=== PATIENT | female | born 1950 | race Caucasian/White ===

== ENCOUNTER 2016-08-22 20:52 | Emergency (ER) | payer OTHER ==
--- NOTE | 2016-08-23 00:17 | DIAGNOSTIC IMAGING REPORT ---
PROCEDURE: CT THORAX ABD PELVIS W/CONT INDICATION: BACK PAIN, HX LYMPHOMA TECHNIQUE: 125 ml of Isovue 300 injected intravenously and axial images were obtained of the entire thorax, abdomen, and pelvis with sagittal and coronal reformations. COMPARISON: None. FINDINGS: THORAX: Moderate mediastinal and bilateral axillary adenopathy. Lungs are clear. Heart and mediastinum are normal. Mild degenerative changes of the mid thoracic spine with accentuation of the thoracic kyphosis. ABDOMEN: Moderate periportal, periceliac, and retroperitoneal adenopathy. Spleen is of normal size. Moderate ingested material in the stomach. Bowel pattern is otherwise normal including appendix. Gallbladder, liver, pancreas, kidneys (5.0 cm left renal cyst), and aorta are normal. Bowel pattern is within normal limits. PELVIS: Moderate internal and external iliac adenopathy. Moderate inguinal adenopathy. Status post hysterectomy. Ovaries are not visualized (presumed atrophic). IMPRESSION: 1. Moderate mediastinal and bilateral axillary adenopathy. 2. Otherwise negative CT thorax. 3. Moderate periportal, periceliac, and retroperitoneal adenopathy. 4. Otherwise negative CT abdomen. 5. Moderate bilateral iliac and inguinal adenopathy. 6. Status post hysterectomy. 7. Otherwise negative CT pelvis ( 8. Findings discussed with Dr. Silvestre Carolina. All CT scans at this facility use dose modulation, iterative reconstruction, and/or weight-based dosing when appropriate to reduce radiation dose to as low as reasonably achievable.
--- NOTE | 2016-08-23 01:31 | ED ORDER SUMMARY ---
..... Patient: ANILA RAMÍREZ OrderSheet [facility] VisitID: [id number] [place] [address] 65y, F Registration Date/Time: 08/22/2016 ORDER SHEET Weight: 59.8 kg Allergies: Compazine, Phenothiazenes, Promethazine HCl, Sulfa Drugs GENERAL ORDERS: CT Abd/Pel w Cont (No) (N/A) Urgent (22:14 08/22/2016 Ananth Bobo) (Ack 22:25 NHouse ER Tech1) (22:42 Ananth Bobo) (Cancelled: Duplicate Order22:42 Ananth Bobo) CT Thorax w Cont (No) (N/A) Urgent (22:14 08/22/2016 Ananth Bobo) (Ack 22:25 NHouse ER Tech1) (22:42 Ananth Bobo) (Cancelled: Duplicate Order22:42 Ananth Bobo) CBC w Diff Urgent (22:15 08/22/2016 Ananth Bobo) (Ack 22:25 NHouse ER Tech1) CMP Urgent (22:15 08/22/2016 Ananth Bobo) (Ack 22:25 NHouse ER Tech1) UA-Culture if indicated Urgent (22:15 08/22/2016 Ananth Bobo) (Ack 22:25 NHouse ER Tech1) CRP Urgent (22:15 08/22/2016 Ananth Bobo) (Ack 22:25 NHouse ER Tech1) Pulse oximeter (22:15 08/22/2016 Ananth Bobo) (22:28 EBonham) CT Thorax/Abd/Pelvis w Cont (No) (N/A) Urgent (22:42 08/22/2016 Ananth Bobo) (Ack 22:59 AMcQuoid ER Tech1) (0:26 Emilyger) MEDICATION ORDERS: IV FLUIDS: IV NS : initial bolus 1000 mL (1000 mL/hr), then none - for X1 (NOW) (22:11 08/22/2016 Ananth Bobo) (22:52 EBonham) Morphine IV 2 mg (may repeat once in 15 minutes for pain > 6/10) (22:27 08/22/2016 Ananth Bobo) (22:52 EBonchristina) Toradol IV 30 mg (NOW) (00:28 08/23/2016 Ananth Bobo) (0:35 EBonchristina) ORDER SHEET NOTES: [Electronically signed by Jaye Orlando (01:55 08/23/2016)] [Electronically signed by Silvestre Carolina Dr. (22:04 08/29/2016)] [Electronically locked/signed by Jaye Orlando (01:55 08/23/2016)]
--- NOTE | 2016-08-23 01:31 | ED NURSING NOTES ---
Clinical Report - Nurses [facility] [address] [place] [address] 08/22/2016 20:53 Patient: ANILA RAMÍREZ TRIAGE Triage time 2150. Acuity: LEVEL 3. Chief Complaint: BACK PAIN. Alert. --22: Jaye Orlando 22:00 08/22/16. BP: 101/77. HR: 81. RR: 16. O2 saturation: 97%. Temp: 98.9 F. Pain level now 03/14. --22:03 Jaye Orlando. Weight: 59.8 kg. Height/Length: 63 inches. BMI: 23.4. --22:00 Jaye Orlando. Medications Cetirizine HCl Oral 10 mg, daily. Copaxone Subcutaneous (Kit 20 mg/mL), 1-2 x daily . Gabapentin Oral. KCL 10 meq, daily. Lasix Oral 20 mg, daily. Lipitor Oral 20 mg, daily. Nifedical XL Oral (Tablet Extended Release 24 Hour 30 mg) 1 tablet, daily. PriLOSEC Oral 40 mg, daily. Senna Lax Oral. TiZANidine HCl Oral (Capsule 2 mg) 1-2, 2x a day. Trazodone HCl Oral 100 mg (2 tabs). Venlafaxine HCl ER Oral (Tablet Extended Release 24 Hour 75 mg) 2 tablets, 2 x daily. --22: Jaye Orlando. Allergies Compazine. --22: Jaye Orlando Phenothiazenes. Promethazine HCl. Sulfa Drugs. --22: Jaye Orlando. History Arrived by private vehicle. Historian: patient. Accompanied by family. Onset. (4 days ago). 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 No history of recent trauma. Treatment QUALITY CONTROL COORDINATOR: None. SOCIAL HX: Never smoker. --22: Jaye Oralndo. PROBLEMS: Malignant Lymphoma. Intervertebral Disc Disease. Neck Injury. Back Injury. Back Pain. Multiple Sclerosis. Hypertension. Chronic Headache. --22: Jaye Orlando. ADDITIONAL SURGERIES: Breast reduction . Hysterectomy. Tonsillectomy. --22: Jaye Orlando. Interventions To treatment room. --22: Jaye Orlando. PHYSICAL ASSESSMENT Ambulatory to room. GENERAL / NEURO / PSYCH: Alert. Oriented X 4. Appears in pain and anxious. RESPIRATORY: Respirations not labored. Chest nontender. Breath sounds within normal limits. CVS: Normal heart rate and rhythm. Capillary refill less than 2 seconds. GI / : Abdomen soft and nontender. Bowel sounds within normal limits. EXTREMITIES: ROM of extremities within normal limits. BACK: Normal inspection of the neck and back. Limited ROM of the back. No neck or back tenderness. --22: Jaye Orlando. NURSING PROGRESS NOTES 22:52 08/22/2016 Site #1 started via IV in the right forearm with an 22g angiocath; one attempt. Blood drawn: rainbow set. Labeled in the presence of the patient and sent to the lab. Saline lock flushed with 10 mL saline. --22:52 Jaye Orlando 22:52 08/22/2016 Started bag #1 1000 mL IV Fluids IV NS (Saline); bolus of 1000 mL wide open via site #1 --22:52 Jaye Orlando 22:52 08/22/2016 Morphine IVP 2 mg given. via site #1. Allergies verified, confirmed 5 rights and sedative warning given to the patient and patient's family. IV patency established. IV site checked: no pain, redness, or swelling. IV flushed thoroughly pre- and post-medication administration. IVP given by RN. --22:52 Jaye Orlando 00:02 08/23/2016 Morphine IVP 2 mg given. via site #1. Allergies verified and confirmed 5 rights. IV patency established. IV site checked: no pain, redness, or swelling. IV flushed thoroughly pre- and post-medication administration. IVP given by RN. --00:02 Jaye Orlando 00:35 08/23/2016 Toradol IVP 30 mg given. via site #1. Allergies verified and confirmed 5 rights. IV patency established. IV site checked: no pain, redness, or swelling. IV flushed thoroughly pre- and post-medication administration. --00:35 Jaye Orlando Reassessment after medication administered. She is calm and resting quietly and has had no adverse reaction. Overall patient status is improved- she states feels better. --01:01 Jaye Orlando 01:06 08/23/16. BP: 111/63. HR: 72. RR: 16. O2 saturation: 97%. --01:06 Jaye Orlando 20:30 08/22/16. BP: 134/88. HR: 68. RR: 16. --01:07 Jaye Orlando 21:45 08/22/16. BP: 101/77. HR: 68. RR: 18. O2 saturation: 97%. --01:08 Jaye Orlando 01:08 08/23/2016 IV Fluids IV NS Discontinued: bag #1 infused. Total amount infused: 1000 mL. --01:08 Jaye Orlando. DISPOSITION / DISCHARGE Departure time: 0135. Condition at departure: improved and stable. No learning barriers present. Discharge instructions provided and reviewed with the patient and spouse. Reviewed medication(s). Patient and spouse verbalized understanding. Written instructions provided in [place]. The patient was discharged by the physician. She was discharged home and accompanied by spouse. She left the Emergency Department ambulatory and via private vehicle. Spouse driving. --01:54 Jaye Orlando 01:55 08/23/2016 Site #1 removed upon discharge. Pressure dressing applied. --01:55 Jaye Orlando. Locked/Released at 08/23/2016 1:55 by Jaye Orlando,
--- NOTE | 2016-08-23 01:31 | ED ORDER SUMMARY ---
..... Patient: ANILA RAMÍREZ OrderSheet [facility] VisitID: [id number] [place] [address] 65y, F Registration Date/Time: 08/22/2016 ORDER SHEET Weight: 59.8 kg Allergies: Compazine, Phenothiazenes, Promethazine HCl, Sulfa Drugs GENERAL ORDERS: CT Abd/Pel w Cont (No) (N/A) Urgent (22:14 08/22/2016 Ananth Bobo) (Ack 22:25 NHouse ER Tech1) (22:42 Ananth Bobo) (Cancelled: Duplicate Order22:42 Ananth Bobo) CT Thorax w Cont (No) (N/A) Urgent (22:14 08/22/2016 Ananth Bobo) (Ack 22:25 NHouse ER Tech1) (22:42 Ananth Bobo) (Cancelled: Duplicate Order22:42 Ananth Bobo) CBC w Diff Urgent (22:15 08/22/2016 Ananth Bobo) (Ack 22:25 NHouse ER Tech1) CMP Urgent (22:15 08/22/2016 Ananth Bobo) (Ack 22:25 NHouse ER Tech1) UA-Culture if indicated Urgent (22:15 08/22/2016 Ananth Bobo) (Ack 22:25 NHouse ER Tech1) CRP Urgent (22:15 08/22/2016 Ananth Bobo) (Ack 22:25 NHouse ER Tech1) Pulse oximeter (22:15 08/22/2016 Ananth Bobo) (22:28 EBonham) CT Thorax/Abd/Pelvis w Cont (No) (N/A) Urgent (22:42 08/22/2016 Ananth Bobo) (Ack 22:59 AMcQuoid ER Tech1) (0:26 Emilyger) MEDICATION ORDERS: IV FLUIDS: IV NS : initial bolus 1000 mL (1000 mL/hr), then none - for X1 (NOW) (22:11 08/22/2016 Ananth Bobo) (22:52 EBonham) Morphine IV 2 mg (may repeat once in 15 minutes for pain > 6/10) (22:27 08/22/2016 Ananth Bobo) (22:52 EBonchristina) Toradol IV 30 mg (NOW) (00:28 08/23/2016 Ananth Bobo) (0:35 EBonchristina) ORDER SHEET NOTES: [Electronically signed by Jaye Orlando (01:55 08/23/2016)] [Electronically signed by Silvestre Carolina Dr. (22:04 08/29/2016)] [Electronically locked/signed by Jaye Orlando (01:55 08/23/2016)]
--- NOTE | 2016-08-23 01:31 | ED CLINICAL REPORT ---
Clinical Report - Physicians/Mid Levels [facility] [address] [place] [address] 08/22/2016 20:53 Patient: ANILA RAMÍREZ Arrived- By private vehicle. Historian- patient and spouse. HISTORY OF PRESENT ILLNESS Chief Complaint: BACK PAIN. Onset- past few days and it is still present. It was abrupt in onset and has been constant but is not gone now. Modifying factors- worsened by lying down. Not relieved by anything. It is described as being moderate in degree. It is described as being in the area of the lower thoracic spine, left upper lumbar spine, left mid lumbar spine, left lower lumbar spine and right upper lumbar spine. It is described as being in the area of the right mid lumbar spine and right lower lumbar spine. The quality is noted to be aching. Quality not similar to prior episodes. No radiation. No bladder dysfunction, bowel dysfunction, sensory loss or motor loss. Additional history - recent diagnosis of non-hodgkin's lymphoma. has not started chemo. reports having oncology appointment in a week or two. Patient denies an injury. No other injury. Similar symptoms previously: None. Recent medical care: Not recently seen/assessed. REVIEW OF SYSTEMS No fever, chills, headache, abdominal pain or nausea. All systems otherwise negative, except as recorded above. PAST HISTORY See nurses notes. Medications: Cetirizine HCl Oral 10 mg, daily. Copaxone Subcutaneous (Kit 20 mg/mL), 1-2 x daily . Gabapentin Oral. KCL 10 meq, daily. Lasix Oral 20 mg, daily. Lipitor Oral 20 mg, daily. Nifedical XL Oral (Tablet Extended Release 24 Hour 30 mg) 1 tablet, daily. PriLOSEC Oral 40 mg, daily. Senna Lax Oral. TiZANidine HCl Oral (Capsule 2 mg) 1-2, 2x a day. Trazodone HCl Oral 100 mg (2 tabs). Venlafaxine HCl ER Oral (Tablet Extended Release 24 Hour 75 mg) 2 tablets, 2 x daily. Allergies: Compazine. Phenothiazenes. Promethazine HCl. Sulfa Drugs. SOCIAL HISTORY Never smoker. No alcohol use or drug use. No recent travel. Is a local resident. FAMILY HISTORY Negative. ADDITIONAL NOTES The nursing notes have been reviewed. PHYSICAL EXAM Vital Signs: 08/22/2016 21:45 BP: 101/77. HR: 68. RR: 18. O2 saturation: 97%. 08/22/2016 20:30 BP: 134/88. HR: 68. RR: 16. Blood pressure normal. Oxygen saturation normal. Appearance: Alert. No acute distress. HEENT: Normal external inspection. Eyes: Pupils equal, round and reactive to light. ENT: Ears normal. Neck: Normal inspection. Neck nontender. Painless ROM. CVS: Heart sounds normal. Pulses normal. Respiratory: No respiratory distress. Breath sounds normal. Abdomen: No visible injury. Soft and nontender. Bowel sounds normal. No mass. Back: Moderate soft tissue tenderness in the right lower and left lower thoracic area and right lower and left lower lumbar area (bilateral paraspinal muscle). No vertebral point tenderness. (no overlying skin changes, марина abnormalities, or crepitus. ROM slightly limited due to pain.). Skin: Skin warm and dry. Normal skin color. No rash. Normal skin turgor. Extremities: Extremities exhibit normal ROM. Extremities nontender. Neuro: Disoriented. No alteration in mental status. Abnormal mood/affect. No cranial nerve deficit. Motor deficit noted. No weakness. Sensory deficit noted. No sensory deficit. Normal gait. LABS, X-RAYS, AND EKG CT Abdomen: PROCEDURE: CT THORAX ABD PELVIS W/CONT INDICATION: BACK PAIN, HX LYMPHOMA TECHNIQUE: 125 ml of Isovue 300 injected intravenously and axial images were obtained of the entire thorax, abdomen, and pelvis with sagittal and coronal reformations. COMPARISON: None. FINDINGS: THORAX: Moderate mediastinal and bilateral axillary adenopathy. Lungs are clear. Heart and mediastinum are normal. Mild degenerative changes of the mid thoracic spine with accentuation of the thoracic kyphosis. ABDOMEN: Moderate periportal, periceliac, and retroperitoneal adenopathy. Spleen is of normal size. Moderate ingested material in the stomach. Bowel pattern is otherwise normal including appendix. Gallbladder, liver, pancreas, kidneys (5.0 cm left renal cyst), and aorta are normal. Bowel pattern is within normal limits. PELVIS: Moderate internal and external iliac adenopathy. Moderate inguinal adenopathy. Status post hysterectomy. Ovaries are not visualized (presumed atrophic). IMPRESSION: 1. Moderate mediastinal and bilateral axillary adenopathy. 2. Otherwise negative CT thorax. 3. Moderate periportal, periceliac, and retroperitoneal adenopathy. 4. Otherwise negative CT abdomen. 5. Moderate bilateral iliac and inguinal adenopathy. 6. Status post hysterectomy. 7. Otherwise negative CT pelvis (. Study type: (chest abdomen pelvis). Abdominal CT performed with IV contrast. The study was independently viewed by me and interpreted by the radiologist. The study was discussed with the radiologist (via phone and packs). Laboratory Tests: UA-Culture if indicated: (COLEMAN: 08/22/2016 23:50) ( MsgRcvd 08/23/2016 00:08) Final results Test Result Flag Units (Reference) URINE COLOR YELLOW URINE APPEARANCE CLEAR URINE GLUCOSE NEGATIVE (NEGATIVE) URINE BILIRUBIN NEGATIVE (NEGATIVE) URINE KETONE NEGATIVE (NEGATIVE) URINE SPECIFIC GRAVITY 1.025 (1.010-1.030) URINE PH 6.0 (5.0-8.0) URINE PROTEIN NEGATIVE (NEGATIVE) URINE UROBILINOGEN 0.2 EU/dL (0.2-1.0) URINE NITRITE NEGATIVE (NEGATIVE) URINE BLOOD 1+ (NEGATIVE) URINE LEUK ESTERASE NEGATIVE (NEGATIVE) URINE RBC 0-1 rbc/hpf (0-1) URINE WBC RARE wbc/hpf (0-1) URINE EPITHELIAL CELLS RARE EPI/hpf (0-5) URINE BACTERIA NONE SEEN (NONE SEEN) URINE COMMENT CULT NOT INDICATED URINE CULTURES ARE SET-UP BASED ON THE FOLLOWING CRITERIA:POSITIVE NITRITEPOSITIVE LEUKOCYTE ESTERASEGREATER THAN 10 WHITE BLOOD CELLSMODERATE (2+) OR GREATER BACTERIA CBC w Diff: (COLEMAN: 08/22/2016 22:50) ( [facility]30) Final results Test Result Flag Units (Reference) WHITE BLOOD COUNT 18.3 H K/uL (4.5-11.5) RED BLOOD COUNT 4.39 M/uL (4.00-5.20) HEMOGLOBIN 12.7 gm/dL (12.0-16.0) HEMATOCRIT 39.7 % (36.0-46.0) MEAN CELL VOLUME 91 fL (80-100) MEAN CORPUSCULAR HGB 29 pg (26-34) MEAN CORPUSCULAR HGB CONC 32 g/dL (31-37) RED CELL DISTRIBUTION WIDTH 14.0 % (11.6-14.8) PLATELET COUNT 149 L K/uL (150-400) POLY % 19 L % (50-75) BAND % 0 % (0-8) LYMPH 73 H % (25-40) MONO 4 % (3-14) EOSINOPHIL % 4 % (0-4) BASOPHIL % 0 % (0-2) METAMYELOCYTE % 0 % (0-1) MYELOCYTE 0 % (0-1) OTHER CELL TYPE 0 CMP: (COLEMAN: 08/22/2016 22:50) ( MsgRcvd 08/22/2016 23:12) Final results Test Result Flag Units (Reference) GLUCOSE 107 mg/dL (70-110) BUN 16 mg/dL (7-18) CREATININE 0.8 mg/dL (0.6-1.3) Estimated GFR >60 mL/min Estimated GFR- >60 mL/min Note: Persistent reduction over 3 months in eGFR<60 mL/min/1.73 m2 defines CKD. Patients with eGFR values>=60 mL/min/1.73 m2 may also have CKD if evidence ofpersistent proteinuria. Additional information may be foundat www.[email or web address].org. SODIUM 140 mmol/L (136-145) POTASSIUM 3.4 L mmol/L (3.5-5.1) CHLORIDE 107 mmol/L (98-107) CARBON DIOXIDE 28 mmol/L (21-32) CALCIUM 8.4 L mg/dL (8.5-10.1) TOTAL PROTEIN 6.8 g/dL (6.4-8.2) ALBUMIN 3.5 g/dL (3.3-5.0) BILIRUBIN, TOTAL 0.3 mg/dL (0.0-1.0) ALKALINE PHOSPHATASE 57 U/L (46-116) AST (SGOT) 22 U/L (15-37) ALT (SGPT) 31 U/L (12-78) C-REACTIVE PROTEIN < 0.2 mg/dL (0.0-0.9) . PROGRESS AND PROCEDURES Course of Care: the patient is a 65-year-old female with past medical history significant for non-Hodgkin's lymphoma presenting for evaluation of back pain. Back pain is nontraumatic in nature. At this time differential diagnosis includes osteomyelitis, discitis, spinal epidural abscess, compression fracture, or fracture of the spine. We do not have MRI at this time. CT scan of the patient's chest, abdomen, pelvis will be ordered as the radiation dose is similar and would obtain more information with the chest, abdomen, pelvis CT scan. Pain medications has been ordered. Patient is agreeable to the treatment plan. Workup is currently pending. Work up does not show any specific etiology for the pain. Updates given about lymph nodes. Patient states she is aware. Pain improved with medications in the ED. Had long discussion with patient about work up here in the ED. CRP negative. DO not feel this is infectious etology. No signs of mass effect. Had long discussion with patient in regards to neuro compromise. No signs of cauda equina, conus medularis, or other more sinister etiology for the pain. Discussed with patient work up, diagnosis, home care, follow up, and return precautions. All questions answered. Patient expressed understanding of these instructions and was agreeable to them. Do not feel patient needs to be admitted to the hospital or require further ED work up. Disposition: Discharged. Condition: good. CLINICAL IMPRESSION 08/23/2016 01:06 BP: 111/63. HR: 72. RR: 16. O2 saturation: 97%. Blood pressure normal. Oxygen saturation normal. Acute thoracic and lumbar back pain. acute leukocytosis Hx of nonhodgkin's lymphoma. INSTRUCTIONS Warnings: GENERAL WARNINGS: Return or contact your physician immediately if your condition worsens or changes unexpectedly, if not improving as expected, or if other problems arise. SPECIFICALLY, return if you develop weakness, numbness, tingling, pain or incontinence. fever or other concerns. Your Current Medications: CONTINUE TAKING THE FOLLOWING MEDICATIONS: Cetirizine HCl Oral : 10 mg daily. Copaxone Subcutaneous : Kit 20 mg/mL, 1-2 x daily. Gabapentin Oral. KCL : 10 meq daily. Lasix Oral : 20 mg daily. Lipitor Oral : 20 mg daily. Nifedical XL Oral : Tablet Extended Release 24 Hour 30 mg, 1 tablet daily. PriLOSEC Oral : 40 mg daily. Senna Lax Oral. TiZANidine HCl Oral : Capsule 2 mg, 1-2 2x a day. Trazodone HCl Oral : 100 mg, 2 tabs. Venlafaxine HCl ER Oral : Tablet Extended Release 24 Hour 75 mg, 2 tablets 2 x daily. Prescription Medications: [place] 5 mg / 325 mg tablets: take 1 to 2 orally every 6 hours as needed for pain. Dispense twenty (20). No refill. Substitution is permissible. Follow-up: Return to the emergency department as needed. Follow up with your doctor in three days. Reason for referral: recheck today's concerns. Summary of care provided to patient via paper. Screening today revealed the patient's blood pressure to be in the normal range. The patient should follow up with a primary care provider for blood pressure management. Understanding of the discharge instructions verbalized by patient. (Electronically signed by Silvestre Carolina Dr. 08/29/2016 22:04)
--- NOTE | 2016-08-29 22:04 | ED MAR SUMMARY ---
..... Medication Administration Record [facility] [address] [place] [address] Patient: ANILA RAMÍREZ Visit ID: [id number] 65y, F Weight: 59.8 kg Height/Length: 63 in BMI: 23.4 ALLERGIES: Compazine, Phenothiazenes, Promethazine HCl, Sulfa Drugs Start 22:52 08/22/2016 Jaye Orlando,, Stop 01:08 08/23/2016 Jaye Orlando, Medication Administered: IV NS (SALINE), Dose: IV Fluids, Bolus: 1000 mL wide open, Dispensed: 1000 mL bag, Site: #1 right forearm. Medication Ordered: IV NS : initial bolus 1000 mL (1000 mL/hr), then none - for X1 (NOW). Given 22:52 08/22/2016 Jaye Orlando, Medication Administered: MORPHINE [IVP], Dose: 2 mg IVP, Site: #1 right forearm. Medication Ordered: Morphine IV 2 mg (may repeat once in 15 minutes for pain > 6/10). Given 00:02 08/23/2016 Jaye Orlando, Medication Administered: MORPHINE [IVP], Dose: 2 mg IVP, Site: #1 right forearm. Medication Ordered: Morphine IV 2 mg (may repeat once in 15 minutes for pain > 6/10). Given 00:35 08/23/2016 Jaye Orlando, Medication Administered: TORADOL [IVP], Dose: 30 mg IVP, Site: #1 right forearm. Medication Ordered: Toradol IV 30 mg (NOW).
--- NOTE | 2016-08-29 22:04 | ED MED RECONCILIATION SUMMARY ---
Patient: ANILA RAMÍREZ Medication Reconciliation Report [facility] VisitID: [id number] [place] [address] 65y, F Registration Date/Time: 08/22/2016 Weight: 59.8 kg Height/Length: 63 in. BMI: 23.4 ALLERGIES: Compazine, Phenothiazenes, Promethazine HCl, Sulfa Drugs The patient's Home Medications are listed below: CONTINUE TAKING THE FOLLOWING MEDICATIONS: Cetirizine HCl Oral 10 mg, daily Copaxone Subcutaneous (20 mg/mL), 1-2 x daily Gabapentin Oral KCL 10 meq, daily Lasix Oral 20 mg, daily Lipitor Oral 20 mg, daily Nifedical XL Oral (30 mg) 1 tablet, daily PriLOSEC Oral 40 mg, daily Senna Lax Oral TiZANidine HCl Oral (2 mg) 1-2, 2x a day Trazodone HCl Oral 100 mg, 2 tabs Venlafaxine HCl ER Oral (75 mg) 2 tablets, 2 x daily The source(s) of the original Home Medication information: Not obtained. The following Medications were given to the patient in the Emergency Department: IV NS IV Fluids bolus 1000 mL wide open, administered: 08/22/2016 10:52:00 PM Morphine [IVP] IVP 2 mg, administered: 08/22/2016 10:52:00 PM Morphine [IVP] IVP 2 mg, administered: 08/23/2016 12:02:00 AM Toradol [IVP] IVP 30 mg, administered: 08/23/2016 12:35:00 AM The following Medications were prescribed to the patient: [place] 5 mg / 325 mg tablets: take 1 to 2 orally every 6 hours as needed for pain. Dispense twenty (20). No refill. Substitution is permissible. -- Silvestre Carolina Dr.
--- NOTE | 2016-08-29 22:04 | ED MAR SUMMARY ---
..... Medication Administration Record [facility] [address] [place] [address] Patient: ANILA RAMÍREZ Visit ID: [id number] 65y, F Weight: 59.8 kg Height/Length: 63 in BMI: 23.4 ALLERGIES: Compazine, Phenothiazenes, Promethazine HCl, Sulfa Drugs Start 22:52 08/22/2016 Jaye Orlando,, Stop 01:08 08/23/2016 Jaye Orlando, Medication Administered: IV NS (SALINE), Dose: IV Fluids, Bolus: 1000 mL wide open, Dispensed: 1000 mL bag, Site: #1 right forearm. Medication Ordered: IV NS : initial bolus 1000 mL (1000 mL/hr), then none - for X1 (NOW). Given 22:52 08/22/2016 Jaye Orlando, Medication Administered: MORPHINE [IVP], Dose: 2 mg IVP, Site: #1 right forearm. Medication Ordered: Morphine IV 2 mg (may repeat once in 15 minutes for pain > 6/10). Given 00:02 08/23/2016 Jaye Orlando, Medication Administered: MORPHINE [IVP], Dose: 2 mg IVP, Site: #1 right forearm. Medication Ordered: Morphine IV 2 mg (may repeat once in 15 minutes for pain > 6/10). Given 00:35 08/23/2016 Jaye Orlando, Medication Administered: TORADOL [IVP], Dose: 30 mg IVP, Site: #1 right forearm. Medication Ordered: Toradol IV 30 mg (NOW).
--- NOTE | 2016-08-29 22:04 | ED MED RECONCILIATION SUMMARY ---
Patient: ANILA RAMÍREZ Medication Reconciliation Report [facility] VisitID: [id number] [place] [address] 65y, F Registration Date/Time: 08/22/2016 Weight: 59.8 kg Height/Length: 63 in. BMI: 23.4 ALLERGIES: Compazine, Phenothiazenes, Promethazine HCl, Sulfa Drugs The patient's Home Medications are listed below: CONTINUE TAKING THE FOLLOWING MEDICATIONS: Cetirizine HCl Oral 10 mg, daily Copaxone Subcutaneous (20 mg/mL), 1-2 x daily Gabapentin Oral KCL 10 meq, daily Lasix Oral 20 mg, daily Lipitor Oral 20 mg, daily Nifedical XL Oral (30 mg) 1 tablet, daily PriLOSEC Oral 40 mg, daily Senna Lax Oral TiZANidine HCl Oral (2 mg) 1-2, 2x a day Trazodone HCl Oral 100 mg, 2 tabs Venlafaxine HCl ER Oral (75 mg) 2 tablets, 2 x daily The source(s) of the original Home Medication information: Not obtained. The following Medications were given to the patient in the Emergency Department: IV NS IV Fluids bolus 1000 mL wide open, administered: 08/22/2016 10:52:00 PM Morphine [IVP] IVP 2 mg, administered: 08/22/2016 10:52:00 PM Morphine [IVP] IVP 2 mg, administered: 08/23/2016 12:02:00 AM Toradol [IVP] IVP 30 mg, administered: 08/23/2016 12:35:00 AM The following Medications were prescribed to the patient: [place] 5 mg / 325 mg tablets: take 1 to 2 orally every 6 hours as needed for pain. Dispense twenty (20). No refill. Substitution is permissible. -- Silvestre Carolina Dr.
--- NOTE | 2016-08-29 22:04 | ED DISCHARGE INSTRUCTIONS ---
Patient: ANILA RAMÍREZ General Instructions [facility] VisitID: [id number] [place] [address] 65y, F Registration Date/Time: 08/22/2016 08/23/2016 01:06 BP: 111/63. HR: 72. RR: 16. O2 saturation: 97%. Blood pressure normal. Oxygen saturation normal. Acute thoracic and lumbar back pain. acute leukocytosis Hx of nonhodgkin's lymphoma. INSTRUCTIONS Warnings: GENERAL WARNINGS: Return or contact your physician immediately if your condition worsens or changes unexpectedly, if not improving as expected, or if other problems arise. SPECIFICALLY, return if you develop weakness, numbness, tingling, pain or incontinence. fever or other concerns. Your Current Medications: CONTINUE TAKING THE FOLLOWING MEDICATIONS: Cetirizine HCl Oral : 10 mg daily. Copaxone Subcutaneous : Kit 20 mg/mL, 1-2 x daily. Gabapentin Oral. KCL : 10 meq daily. Lasix Oral : 20 mg daily. Lipitor Oral : 20 mg daily. Nifedical XL Oral : Tablet Extended Release 24 Hour 30 mg, 1 tablet daily. PriLOSEC Oral : 40 mg daily. Senna Lax Oral. TiZANidine HCl Oral : Capsule 2 mg, 1-2 2x a day. Trazodone HCl Oral : 100 mg, 2 tabs. Venlafaxine HCl ER Oral : Tablet Extended Release 24 Hour 75 mg, 2 tablets 2 x daily. Prescription Medications: [place] 5 mg / 325 mg tablets: take 1 to 2 orally every 6 hours as needed for pain. Dispense twenty (20). No refill. Substitution is permissible. Follow-up: Return to the emergency department as needed. Follow up with your doctor in three days. Reason for referral: recheck today's concerns. Summary of care provided to patient via paper. Screening today revealed the patient's blood pressure to be in the normal range. The patient should follow up with a primary care provider for blood pressure management. Understanding of the discharge instructions verbalized by patient. ADDITIONAL INFORMATION Back Pain [Acute Or Chronic] Back pain is usually caused by an injury to the muscles or ligaments of the spine. Sometimes the disks that separate each bone in the spine may bulge and cause pain by pressing on a nearby nerve. Back pain may also appear after a sudden twisting/bending force (such as in a car accident), after a simple awkward movement, or lifting something heavy with poor body positioning. In either case, muscle spasm is often present and adds to the pain. Acute back pain usually gets better in one to two weeks. Back pain related to disk disease, arthritis in the spinal joints or spinal stenosis (narrowing of the spinal canal) can become chronic and last for months or years. Unless you had a physical injury (for example, a car accident or fall) X-rays are usually not ordered for the initial evaluation of back pain. If pain continues and does not respond to medical treatment, x-rays and other tests may be performed at a later time. Home Care: You may need to stay in bed the first few days. But, as soon as possible, begin sitting or walking to avoid problems with prolonged bed rest (muscle weakness, worsening back stiffness and pain, blood clots in the legs). When in bed, try to find a position of comfort. A firm mattress is best. Try lying flat on your back with pillows under your knees. You can also try lying on your side with your knees bent up towards your chest and a pillow between your knees. Avoid prolonged sitting. This puts more stress on the lower back than standing or walking. During the first two days after injury, apply an ICE PACK to the painful area for 20 minutes every 2-4 hours. This will reduce swelling and pain. HEAT (hot shower, hot bath or heating pad) works well for muscle spasm. You can start with ice, then switch to heat after two days. Some patients feel best alternating ice and heat treatments. Use the one method that feels the best to you. You may use acetaminophen (Tylenol) or ibuprofen (Motrin, Advil) to control pain, unless another pain medicine was prescribed. [NOTE: If you have chronic liver or kidney disease or ever had a stomach ulcer or GI bleeding, talk with your doctor before using these medicines.] Be aware of safe lifting methods and do not lift anything over 15 pounds until all the pain is gone. Follow Up with your doctor or this facility if your symptoms do not start to improve after one week. Physical therapy may be needed. [NOTE: If X-rays were taken, they will be reviewed by a radiologist. You will be notified of any new findings that may affect your care.] Get Prompt Medical Attention if any of the following occur: Pain becomes worse or spreads to your legs Weakness or numbness in one or both legs Loss of bowel or bladder control Numbness in the groin or genital area Hydrocodone Bitartrate, Acetaminophen Oral tablet What is this medicine? ACETAMINOPHEN; HYDROCODONE (a set a AZUCENA carolina fen; israel droe KOE done) is a pain reliever. It is used to treat mild to moderate pain. How should I use this medicine? Take this medicine by mouth. Swallow it with a full glass of water. Follow the directions on the prescription label. If the medicine upsets your stomach, take the medicine with food or milk. Do not take more than you are told to take. Talk to your enterprise application analyst regarding the use of this medicine in children. This medicine is not approved for use in children. What side effects may I notice from receiving this medicine? Side effects that you should report to your doctor or health care program resident as soon as possible: allergic reactions like skin rash, itching or hives, swelling of the face, lips, or tongue breathing problems confusion feeling faint or lightheaded, falls stomach pain yellowing of the eyes or skin Side effects that usually do not require medical attention (report to your doctor or health care program resident if they continue or are bothersome): nausea, vomiting stomach upset What may interact with this medicine? alcohol antihistamines isoniazid medicines for depression, anxiety, or psychotic disturbances medicines for sleep muscle relaxants naltrexone narcotic medicines (opiates) for pain phenobarbital ritonavir tramadol What if I miss a dose? If you miss a dose, take it as soon as you can. If it is almost time for your next dose, take only that dose. Do not take double or extra doses. Where should I keep my medicine? Keep out of the reach of children. This medicine can be abused. Keep your medicine in a safe place to protect it from theft. Do not share this medicine with anyone. Selling or giving away this medicine is dangerous and against the law. Store at room temperature between 15 and 30 degrees C (59 and 86 degrees F). Protect from light. Keep container tightly closed. Throw away any unused medicine after the expiration date. Discard unused medicine and used packaging carefully. Pets and children can be harmed if they find used or lost packages. What should I tell my health care provider before I take this medicine? They need to know if you have any of these conditions: brain tumor Crohn's disease, inflammatory bowel disease, or ulcerative colitis drink more than 3 alcohol-containing drinks per day drug abuse or addiction head injury heart or circulation problems kidney disease or problems going to the bathroom liver disease lung disease, asthma, or breathing problems an unusual or allergic reaction to acetaminophen, hydrocodone, other opioid analgesics, other medicines, foods, dyes, or preservatives or trying to get breast-feeding What should I watch for while using this medicine? Tell your doctor or health care program resident if your pain does not go away, if it gets worse, or if you have new or a different type of pain. You may develop tolerance to the medicine. Tolerance means that you will need a higher dose of the medicine for pain relief. Tolerance is normal and is expected if you take the medicine for a long time. Do not suddenly stop taking your medicine because you may develop a severe reaction. Your body becomes used to the medicine. This does NOT mean you are addicted. Addiction is a behavior related to getting and using a drug for a non-medical reason. If you have pain, you have a medical reason to take pain medicine. Your doctor will tell you how much medicine to take. If your doctor wants you to stop the medicine, the dose will be slowly lowered over time to avoid any side effects. You may get drowsy or dizzy when you first start taking the medicine or change doses. Do not drive, use machinery, or do anything that may be dangerous until you know how the medicine affects you. Stand or sit up slowly. There are different types of narcotic medicines (opiates) for pain. If you take more than one type at the same time, you may have more side effects. Give your health care provider a list of all medicines you use. Your doctor will tell you how much medicine to take. Do not take more medicine than directed. Call emergency for help if you have problems breathing. The medicine will cause constipation. Try to have a bowel movement at least every 2 to 3 days. If you do not have a bowel movement for 3 days, call your doctor or health care program resident. Too much acetaminophen can be very dangerous. Do not take Tylenol (acetaminophen) or medicines that contain acetaminophen with this medicine. Many non-prescription medicines contain acetaminophen. Always read the labels carefully. You have been given the following additional information: Back Pain (Acute Or Chronic) Hydrocodone Bitartrate, Acetaminophen Oral tablet (Electronically signed by Silvestre Carolina Dr. 08/29/2016 22:04)
== END 2016-08-23 01:35 | disposition home or self-care (01) ==
LOC: ED SRH 20:52
DX: M54.6 Pain in thoracic spine (principal); M54.5 Low back pain; D72.829 Elevated white blood cell count, unspecified; C85.90 Non-Hodgkin lymphoma, unspecified, unspecified site; Z79.899 Other long term (current) drug therapy; Z88.2 Allergy status to sulfonamides; Z88.6 Allergy status to analgesic agent
CPT/HCPCS: 90004; 90100; 91585; 91643; 95059

== ENCOUNTER 2016-09-03 01:49 | Emergency (ER) | payer OTHER ==
--- NOTE | 2016-09-03 03:34 | ED ORDER SUMMARY ---
..... Patient: ANILA RAMÍREZ OrderSheet [facility]ly [facility] VisitID: [id number] [address] [place] [address] 65y, F Registration Date/Time: 09/03/2016 ORDER SHEET Weight: 63.5 kg (stated) Allergies: Compazine, Phenothiazenes, Promethazine HCl, Sulfa Drugs GENERAL ORDERS: MEDICATION ORDERS: Morphine IM 4 mg (HIGH ALERT MEDICATION, NOW) (02:21 09/03/2016 Kendy Bobo) (Ack 2:26 HSoule) (2:40 HSoule) Previously tolerated Zofran Zofran ODT PO 4 mg (NOW) (02:22 09/03/2016 Kendy Bobo) (Ack 2:26 HSoule) (2:28 HSoule) Previously tolerated Zofran Toradol IM 30 mg (NOW) (03:36 09/03/2016 HSoule verbal order read back to Kendy Bobo) (3:37 HSoule) IV FLUIDS: Toradol IV 30 mg (NOW) (03:18 09/03/2016 Kendy Bobo) (Ack 3:21 HSoule) (Cancelled: Change in route 3:36 HSoule) ORDER SHEET NOTES: [Electronically signed by James Ellis Dr. (03:36 09/03/2016)] [Electronically signed by Rebekah Zavala (05:02 09/03/2016)] [Electronically locked/signed by Rebekah Zavala (05:02 09/03/2016)]
--- NOTE | 2016-09-03 03:34 | ED ORDER SUMMARY ---
..... Patient: ANILA RAMÍREZ OrderSheet [facility] VisitID: [id number] [address] [place] [address] 65y, F Registration Date/Time: 09/03/2016 ORDER SHEET Weight: 63.5 kg (stated) Allergies: Compazine, Phenothiazenes, Promethazine HCl, Sulfa Drugs GENERAL ORDERS: MEDICATION ORDERS: Morphine IM 4 mg (HIGH ALERT MEDICATION, NOW) (02:21 09/03/2016 Kendy Bobo) (Ack 2:26 HSoule) (2:40 HSoule) Previously tolerated Zofran Zofran ODT PO 4 mg (NOW) (02:22 09/03/2016 Kendy Bobo) (Ack 2:26 HSoule) (2:28 HSoule) Previously tolerated Zofran Toradol IM 30 mg (NOW) (03:36 09/03/2016 HSoule verbal order read back to Kendy Bobo) (3:37 HSoule) IV FLUIDS: Toradol IV 30 mg (NOW) (03:18 09/03/2016 Kendy Bobo) (Ack 3:21 HSoule) (Cancelled: Change in route 3:36 HSoule) ORDER SHEET NOTES: [Electronically signed by James Ellis Dr. (03:36 09/03/2016)] [Electronically signed by Rebekah Zavala (05:02 09/03/2016)] [Electronically locked/signed by Rebekah Zavala (05:02 09/03/2016)]
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
--- NOTE | 2016-09-03 05:02 | ED DISCHARGE INSTRUCTIONS ---
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 Early malignant lymphoma. INSTRUCTIONS Your Current Medications: CONTINUE TAKING THE FOLLOWING MEDICATIONS: Cetirizine HCl Oral : 10 mg daily. Copaxone Subcutaneous : Kit 20 mg/mL, 1-2 x daily. Gabapentin Oral. KCL : 10 meq daily. Lasix Oral : 20 mg daily. Lipitor Oral : 20 mg daily. Nifedical XL Oral : Tablet Extended Release 24 Hour 30 mg, 1 tablet daily. PriLOSEC Oral : 40 mg daily. Senna Lax Oral. TiZANidine HCl Oral : Capsule 2 mg, 1-2 2x a day. Trazodone HCl Oral : 100 mg, 2 tabs. Venlafaxine HCl ER Oral : Tablet Extended Release 24 Hour 75 mg, 2 tablets 2 x daily. Prescription Medications: Hydrocodone/APAP 5mg / 325mg: take 1-2 orally every 6 hours as needed for pain. Dispense twenty (20). No refill. Zofran (orally disintegrating tablets) 4 mg: take 1 orally every 6 hours as needed for nausea and vomiting. Dispense ten (10). No refill. Substitution is permissible. Follow-up: Follow up with your doctor Saturday as scheduled. Blood pressure screening was not performed during this visit because the patient has an active diagnosis of hypertension. ADDITIONAL INFORMATION Back Pain [Acute Or Chronic] Back pain is usually caused by an injury to the muscles or ligaments of the spine. Sometimes the disks that separate each bone in the spine may bulge and cause pain by pressing on a nearby nerve. Back pain may also appear after a sudden twisting/bending force (such as in a car accident), after a simple awkward movement, or lifting something heavy with poor body positioning. In either case, muscle spasm is often present and adds to the pain. Acute back pain usually gets better in one to two weeks. Back pain related to disk disease, arthritis in the spinal joints or spinal stenosis (narrowing of the spinal canal) can become chronic and last for months or years. Unless you had a physical injury (for example, a car accident or fall) X-rays are usually not ordered for the initial evaluation of back pain. If pain continues and does not respond to medical treatment, x-rays and other tests may be performed at a later time. Home Care: You may need to stay in bed the first few days. But, as soon as possible, begin sitting or walking to avoid problems with prolonged bed rest (muscle weakness, worsening back stiffness and pain, blood clots in the legs). When in bed, try to find a position of comfort. A firm mattress is best. Try lying flat on your back with pillows under your knees. You can also try lying on your side with your knees bent up towards your chest and a pillow between your knees. Avoid prolonged sitting. This puts more stress on the lower back than standing or walking. During the first two days after injury, apply an ICE PACK to the painful area for 20 minutes every 2-4 hours. This will reduce swelling and pain. HEAT (hot shower, hot bath or heating pad) works well for muscle spasm. You can start with ice, then switch to heat after two days. Some patients feel best alternating ice and heat treatments. Use the one method that feels the best to you. You may use acetaminophen (Tylenol) or ibuprofen (Motrin, Advil) to control pain, unless another pain medicine was prescribed. [NOTE: If you have chronic liver or kidney disease or ever had a stomach ulcer or GI bleeding, talk with your doctor before using these medicines.] Be aware of safe lifting methods and do not lift anything over 15 pounds until all the pain is gone. Follow Up with your doctor or this facility if your symptoms do not start to improve after one week. Physical therapy may be needed. [NOTE: If X-rays were taken, they will be reviewed by a radiologist. You will be notified of any new findings that may affect your care.] Get Prompt Medical Attention if any of the following occur: Pain becomes worse or spreads to your legs Weakness or numbness in one or both legs Loss of bowel or bladder control Numbness in the groin or genital area Hydrocodone Bitartrate, Acetaminophen Oral tablet What is this medicine? ACETAMINOPHEN; HYDROCODONE (a set a AZUCENA carolina fen; israel droe KOE done) is a pain reliever. It is used to treat mild to moderate pain. How should I use this medicine? Take this medicine by mouth. Swallow it with a full glass of water. Follow the directions on the prescription label. If the medicine upsets your stomach, take the medicine with food or milk. Do not take more than you are told to take. Talk to your concrete gun operator regarding the use of this medicine in children. This medicine is not approved for use in children. What side effects may I notice from receiving this medicine? Side effects that you should report to your doctor or health emergency care tech as soon as possible: allergic reactions like skin rash, itching or hives, swelling of the face, lips, or tongue breathing problems confusion feeling faint or lightheaded, falls stomach pain yellowing of the eyes or skin Side effects that usually do not require medical attention (report to your doctor or health emergency care tech if they continue or are bothersome): nausea, vomiting stomach upset What may interact with this medicine? alcohol antihistamines isoniazid medicines for depression, anxiety, or psychotic disturbances medicines for sleep muscle relaxants naltrexone narcotic medicines (opiates) for pain phenobarbital ritonavir tramadol What if I miss a dose? If you miss a dose, take it as soon as you can. If it is almost time for your next dose, take only that dose. Do not take double or extra doses. Where should I keep my medicine? Keep out of the reach of children. This medicine can be abused. Keep your medicine in a safe place to protect it from theft. Do not share this medicine with anyone. Selling or giving away this medicine is dangerous and against the law. Store at room temperature between 15 and 30 degrees C (59 and 86 degrees F). Protect from light. Keep container tightly closed. Throw away any unused medicine after the expiration date. Discard unused medicine and used packaging carefully. Pets and children can be harmed if they find used or lost packages. What should I tell my health care provider before I take this medicine? They need to know if you have any of these conditions: brain tumor Crohn's disease, inflammatory bowel disease, or ulcerative colitis drink more than 3 alcohol-containing drinks per day drug abuse or addiction head injury heart or circulation problems kidney disease or problems going to the bathroom liver disease lung disease, asthma, or breathing problems an unusual or allergic reaction to acetaminophen, hydrocodone, other opioid analgesics, other medicines, foods, dyes, or preservatives or trying to get breast-feeding What should I watch for while using this medicine? Tell your doctor or health emergency care tech if your pain does not go away, if it gets worse, or if you have new or a different type of pain. You may develop tolerance to the medicine. Tolerance means that you will need a higher dose of the medicine for pain relief. Tolerance is normal and is expected if you take the medicine for a long time. Do not suddenly stop taking your medicine because you may develop a severe reaction. Your body becomes used to the medicine. This does NOT mean you are addicted. Addiction is a behavior related to getting and using a drug for a non-medical reason. If you have pain, you have a medical reason to take pain medicine. Your doctor will tell you how much medicine to take. If your doctor wants you to stop the medicine, the dose will be slowly lowered over time to avoid any side effects. You may get drowsy or dizzy when you first start taking the medicine or change doses. Do not drive, use machinery, or do anything that may be dangerous until you know how the medicine affects you. Stand or sit up slowly. There are different types of narcotic medicines (opiates) for pain. If you take more than one type at the same time, you may have more side effects. Give your health care provider a list of all medicines you use. Your doctor will tell you how much medicine to take. Do not take more medicine than directed. Call emergency for help if you have problems breathing. The medicine will cause constipation. Try to have a bowel movement at least every 2 to 3 days. If you do not have a bowel movement for 3 days, call your doctor or health emergency care tech. Too much acetaminophen can be very dangerous. Do not take Tylenol (acetaminophen) or medicines that contain acetaminophen with this medicine. Many non-prescription medicines contain acetaminophen. Always read the labels carefully. Ondansetron Oral disintegrating tablet What is this medicine? ONDANSETRON (on RENATO se agueda) is used to treat nausea and vomiting caused by chemotherapy. It is also used to prevent or treat nausea and vomiting after surgery. How should I use this medicine? These tablets are made to dissolve in the mouth. Do not try to push the tablet through the foil backing. With dry hands, peel away the foil backing and gently remove the tablet. Place the tablet in the mouth and allow it to dissolve, then swallow. While you may take these tablets with water, it is not necessary to do so. Talk to your concrete gun operator regarding the use of this medicine in children. Special care may be needed. What side effects may I notice from receiving this medicine? Side effects that you should report to your doctor or health emergency care tech as soon as possible: allergic reactions like skin rash, itching or hives, swelling of the face, lips, or tongue breathing problems dizziness fast or irregular heartbeat feeling faint or lightheaded, falls fever and chills swelling of the hands and feet tightness in the chest Side effects that usually do not require medical attention (report to your doctor or health emergency care tech if they continue or are bothersome): constipation or diarrhea headache What may interact with this medicine? Do not take this medicine with any of the following medications: -apomorphine -cisapride -dofetilide -dronedarone -pimozide -thioridazine -ziprasidone This medicine may also interact with the following medications: -carbamazepine -phenytoin -rifampicin -tramadol -other medicines that prolong the QT interval (cause an abnormal heart rhythm) What if I miss a dose? If you miss a dose, take it as soon as you can. If it is almost time for your next dose, take only that dose. Do not take double or extra doses. Where should I keep my medicine? Keep out of the reach of children. Store between 2 and 30 degrees C (36 and 86 degrees F). Throw away any unused medicine after the expiration date. What should I tell my health care provider before I take this medicine? They need to know if you have any of these conditions: heart disease history of irregular heartbeat liver disease low levels of magnesium or potassium in the blood an unusual or allergic reaction to ondansetron, granisetron, other medicines, foods, dyes, or preservatives or trying to get breast-feeding What should I watch for while using this medicine? Check with your doctor or health emergency care tech as soon as you can if you have any sign of an allergic reaction. You have been given the following additional information: Back Pain (Acute Or Chronic) Hydrocodone Bitartrate, Acetaminophen Oral tablet Ondansetron Oral disintegrating tablet (Electronically signed by James Ellis Dr. 09/03/2016 3:36)
--- NOTE | 2016-09-03 05:02 | ED MED RECONCILIATION SUMMARY ---
Patient: ANILA RAMÍREZ Medication Reconciliation Report [facility] VisitID: [id number] [address] [place] [address] 65y, F Registration Date/Time: 09/03/2016 Weight: 63.5 kg Height/Length: 63 in. BMI: 24.8 ALLERGIES: Compazine, Phenothiazenes, Promethazine HCl, Sulfa Drugs The patient's Home Medications are listed below: CONTINUE TAKING THE FOLLOWING MEDICATIONS: Cetirizine HCl Oral 10 mg, daily Copaxone Subcutaneous (20 mg/mL), 1-2 x daily Gabapentin Oral KCL 10 meq, daily Lasix Oral 20 mg, daily Lipitor Oral 20 mg, daily Nifedical XL Oral (30 mg) 1 tablet, daily PriLOSEC Oral 40 mg, daily Senna Lax Oral TiZANidine HCl Oral (2 mg) 1-2, 2x a day Trazodone HCl Oral 100 mg, 2 tabs Venlafaxine HCl ER Oral (75 mg) 2 tablets, 2 x daily The source(s) of the original Home Medication information: patient The following Medications were given to the patient in the Emergency Department: Oraliafrsantiago ODT [PO] PO 4 mg, administered: 09/03/2016 2:28:00 AM Morphine [IM] IM 4 mg, administered: 09/03/2016 2:40:00 AM Toradol [IM] IM 30 mg, administered: 09/03/2016 3:27:00 AM The following Medications were prescribed to the patient: Hydrocodone/APAP 5mg / 325mg: take 1-2 orally every 6 hours as needed for pain. Dispense twenty (20). No refill. -- James Ellis Dr. Zofran (orally disintegrating tablets) 4 mg: take 1 orally every 6 hours as needed for nausea and vomiting. Dispense ten (10). No refill. Substitution is permissible. -- James Ellis Dr.
--- NOTE | 2016-09-03 05:02 | ED MAR SUMMARY ---
..... Medication Administration Record [facility] [address] [place] [address] Patient: ANILA RAMÍREZ Visit ID: [id number] 65y, F Weight: 63.5 kg Height/Length: 63 in BMI: 24.8 ALLERGIES: Compazine, Phenothiazenes, Promethazine HCl, Sulfa Drugs Given 02:28 09/03/2016 Rebekah Zavala, Medication Administered: ZOFRAN ODT [PO] (ONDANSETRON), Dose: 4 mg Oral Disintegrating Tablets PO. Medication Ordered: Zofran ODT PO 4 mg (NOW). Given 02:40 09/03/2016 Rebekah Zavala, Medication Administered: MORPHINE [IM] (MORPHINE SULFATE (PF)), Dose: 4 mg IM. Medication Ordered: Morphine IM 4 mg (HIGH ALERT MEDICATION, NOW). Given 03:27 09/03/2016 Rebekah Zavala, Medication Administered: TORADOL [IM] (KETOROLAC TROMETHAMINE), Dose: 30 mg IM. Medication Ordered: Toradol IM 30 mg (NOW).
--- NOTE | 2016-09-03 05:02 | ED MAR SUMMARY ---
..... Medication Administration Record [facility] [address] [place] [address] Patient: ANILA RAMÍREZ Visit ID: [id number] 65y, F Weight: 63.5 kg Height/Length: 63 in BMI: 24.8 ALLERGIES: Compazine, Phenothiazenes, Promethazine HCl, Sulfa Drugs Given 02:28 09/03/2016 Rebekah Zavala, Medication Administered: ZOFRAN ODT [PO] (ONDANSETRON), Dose: 4 mg Oral Disintegrating Tablets PO. Medication Ordered: Zofran ODT PO 4 mg (NOW). Given 02:40 09/03/2016 Rebekah Zavala, Medication Administered: MORPHINE [IM] (MORPHINE SULFATE (PF)), Dose: 4 mg IM. Medication Ordered: Morphine IM 4 mg (HIGH ALERT MEDICATION, NOW). Given 03:27 09/03/2016 Rebekah Zavala, Medication Administered: TORADOL [IM] (KETOROLAC TROMETHAMINE), Dose: 30 mg IM. Medication Ordered: Toradol IM 30 mg (NOW).
--- NOTE | 2016-09-03 05:02 | ED MED RECONCILIATION SUMMARY ---
Patient: ANILA RAMÍREZ Medication Reconciliation Report [facility] VisitID: [id number] [address] [place] [address] 65y, F Registration Date/Time: 09/03/2016 Weight: 63.5 kg Height/Length: 63 in. BMI: 24.8 ALLERGIES: Compazine, Phenothiazenes, Promethazine HCl, Sulfa Drugs The patient's Home Medications are listed below: CONTINUE TAKING THE FOLLOWING MEDICATIONS: Cetirizine HCl Oral 10 mg, daily Copaxone Subcutaneous (20 mg/mL), 1-2 x daily Gabapentin Oral KCL 10 meq, daily Lasix Oral 20 mg, daily Lipitor Oral 20 mg, daily Nifedical XL Oral (30 mg) 1 tablet, daily PriLOSEC Oral 40 mg, daily Senna Lax Oral TiZANidine HCl Oral (2 mg) 1-2, 2x a day Trazodone HCl Oral 100 mg, 2 tabs Venlafaxine HCl ER Oral (75 mg) 2 tablets, 2 x daily The source(s) of the original Home Medication information: patient The following Medications were given to the patient in the Emergency Department: Oraliafrsantiago ODT [PO] PO 4 mg, administered: 09/03/2016 2:28:00 AM Morphine [IM] IM 4 mg, administered: 09/03/2016 2:40:00 AM Toradol [IM] IM 30 mg, administered: 09/03/2016 3:27:00 AM The following Medications were prescribed to the patient: Hydrocodone/APAP 5mg / 325mg: take 1-2 orally every 6 hours as needed for pain. Dispense twenty (20). No refill. -- James Ellis Dr. Zofran (orally disintegrating tablets) 4 mg: take 1 orally every 6 hours as needed for nausea and vomiting. Dispense ten (10). No refill. Substitution is permissible. -- James Ellis Dr.
== END 2016-09-03 03:40 | disposition home or self-care (01) ==
LOC: ED SRH 01:49
DX: S39.012A Strain of muscle, fascia and tendon of lower back, initial encounter (principal); X58.XXXA Exposure to other specified factors, initial encounter; C85.90 Non-Hodgkin lymphoma, unspecified, unspecified site; I10 Essential (primary) hypertension; G35 Multiple sclerosis; Z88.2 Allergy status to sulfonamides; Z88.5 Allergy status to narcotic agent

== ENCOUNTER 2016-09-17 01:57 | Emergency (ER) | payer OTHER ==
--- NOTE | 2016-09-17 02:45 | ED CLINICAL REPORT ---
Clinical Report - Physicians/Mid Levels [facility] [address] [place] [address] 09/17/2016 1:57 Patient: ANILA RAMÍREZ Time Seen: 02:31 Sep 17 2016. Arrived- By private vehicle. Historian- patient. CPT: ER phys charges level 4 (#[id number]). HISTORY OF PRESENT ILLNESS Chief Complaint: BACK PAIN and CHRONIC BACK PAIN. It is described as being moderate in degree and in the area of the lower lumbar spine. The quality is noted to be sharp, aching, "pain" and similar to prior episodes. Onset was yesterday ran out of meds. and it is still present. No bladder dysfunction, bowel dysfunction, sensory loss or motor loss. Patient denies an injury. No other injury. Similar symptoms previously: Chronically. Recent medical care: Not recently seen/assessed. REVIEW OF SYSTEMS No fever, chills, difficulty with urination, urinary frequency or hematuria. No skin rash, sore throat, cough, difficulty breathing or chest pain. No abdominal pain, nausea, vomiting, diarrhea or black stools. All systems otherwise negative, except as recorded above. PAST HISTORY Malignant Lymphoma. Myofascial Strain. Intervertebral Disc Disease. Neck Injury. Back Injury. Neck Pain. Back Pain. Multiple Sclerosis. Hypertension. Chronic Headache. . ADDITIONAL SURGERIES: Breast reduction . Hysterectomy. Tonsillectomy. Medications: Vit D3. Multivitamins Oral. Nifedical XL Oral (Tablet Extended Release 24 Hour 30 mg) 1 tablet, daily. PriLOSEC Oral 40 mg, daily. TiZANidine HCl Oral (Capsule 2 mg) 1-2, 2x a day. Trazodone HCl Oral 100 mg (2 tabs). Venlafaxine HCl ER Oral (Tablet Extended Release 24 Hour 75 mg) 2 tablets, 2 x daily. Copaxone Subcutaneous (Kit 20 mg/mL), 1-2 x daily . Gabapentin Oral. KCL 10 meq, daily. Lasix Oral 20 mg, daily. Lipitor Oral 20 mg, daily. Allergies: Compazine. Phenothiazenes. Promethazine HCl. Sulfa Drugs. SOCIAL HISTORY Never smoker. No alcohol use or drug use. ADDITIONAL NOTES The nursing notes have been reviewed. PHYSICAL EXAM Vital Signs: 09/17/2016 02:07 BP: 142/94. HR: 107. RR: 16. O2 saturation: 97%. Temp: 98.3 F. Pain level now: 710. Appearance: Alert. ENT: Pharynx normal. Neck: Normal inspection. Neck nontender. Painless ROM. CVS: Heart sounds normal. Respiratory: No respiratory distress. Breath sounds normal. Abdomen: Nontender. Back: Soft tissue tenderness in the right lower and left lower lumbar area. Limited ROM in the back. Skin: Skin warm. Normal skin color. No rash. Extremities: Extremities exhibit normal ROM. Extremities nontender. Neuro: Oriented X 3. Mood/affect normal. No motor deficit. No sensory deficit. Reflexes normal. PROGRESS AND PROCEDURES Course of Care: patient's been seen here multiple times now for refill of narcotics. She notes her PCP nor her oncologist will continue to write for these. She has been set up with the pain clinic October 03 of this year. discussed that would give her pain medicine one more time but that would be the end of narcotics from the ER. Hopefully these will get her to her pain clinic appointment. Patient/family counseled. Disposition: Discharged. Condition: stable. CLINICAL IMPRESSION Chronic low back pain. INSTRUCTIONS Apply moist heat for 15-20 minutes three times a day for one weeks. Limit lifting. No strenuous activity. (The ER cannot refill anymore pain medication prescriptions.). Warnings: SEDATIVE MEDICATION: You were given sedative medication during your visit. Do not drive or operate dangerous machinery. Your Current Medications: CONTINUE TAKING THE FOLLOWING MEDICATIONS: Copaxone Subcutaneous : Kit 20 mg/mL, 1-2 x daily. Gabapentin Oral. KCL : 10 meq daily. Lasix Oral : 20 mg daily. Lipitor Oral : 20 mg daily. Multivitamins Oral. Nifedical XL Oral : Tablet Extended Release 24 Hour 30 mg, 1 tablet daily. PriLOSEC Oral : 40 mg daily. TiZANidine HCl Oral : Capsule 2 mg, 1-2 2x a day. Trazodone HCl Oral : 100 mg, 2 tabs. Venlafaxine HCl ER Oral : Tablet Extended Release 24 Hour 75 mg, 2 tablets 2 x daily. Vit D3*. Prescription Medications: Hydrocodone/APAP 5mg/325mg: take 1 to 2 orally every 6 hours as needed for pain. Dispense fifteen (15). No refills. Follow-up: Follow up with a pain management clinic in two weeks as scheduled. Understanding of the discharge instructions verbalized by patient and family. (Electronically signed by Vick Rosales MD 09/18/2016 19:40)
--- NOTE | 2016-09-17 02:45 | ED NURSING NOTES ---
Clinical Report - Nurses [facility] [address] [place] [address] 09/17/2016 1:57 [id number] Triage time 02:09 Sep 17 2016. Chief Complaint: (Chronic back pain/ Cough). SEPSIS SCREEN: Sepsis Screen: negative. Negative (no infection suspected/documented). Heart rate greater than 90. NICOLA COMA SCORE: [place] Coma Scale: 15- eyes open spontaneously (4); best verbal response- oriented x 4 (5); best motor response- obeys commands (6). --02:16 Rebekah Zavala 02:07 09/17/16. BP: 142/94. HR: 107. RR: 16. O2 saturation: 97%. Temp: 98.3 F (oral). Pain level now: 02/11. --02:16 Rebekah Zavala Acuity: LEVEL 4. --02:20 Rebekah Zavala. Weight: 66.6 kg stated. Height/Length: 62 inches Per Patient. BMI: 26.9. --02:10 Rebekah Zavala. Medications Copaxone Subcutaneous (Kit 20 mg/mL), 1-2 x daily . Gabapentin Oral. KCL 10 meq, daily. Lasix Oral 20 mg, daily. Lipitor Oral 20 mg, daily. --02:13 Rebekah Zavala Nifedical XL Oral (Tablet Extended Release 24 Hour 30 mg) 1 tablet, daily. PriLOSEC Oral 40 mg, daily. TiZANidine HCl Oral (Capsule 2 mg) 1-2, 2x a day. Trazodone HCl Oral 100 mg (2 tabs). Venlafaxine HCl ER Oral (Tablet Extended Release 24 Hour 75 mg) 2 tablets, 2 x daily. --02:13 Rebekah Zavala Multivitamins Oral. --02:13 Rebekah Zavala Vit D3. --02:13 Rebekah Zavala. Allergies Compazine. Phenothiazenes. Promethazine HCl. Sulfa Drugs. --02:13 Rebekah Zavala. History Arrived by private vehicle. Historian: patient. Accompanied by family. Primary physician (Tod). This started just prior to arrival. ( Pt reports chronic back pack but pain has been worse today.). --02:16 Rebekah Zavala SOCIAL HX: Never smoker. No alcohol use or drug use. No infectious disease exposure. ABUSE ASSESSMENT: No report of abuse. NUTRITIONAL RISK ASSESSMENT: The nutritional risk assessment revealed no deficiencies. FUNCTIONAL ASSESSMENT: Functional assessment: no impairments noted. LEARNING NEEDS ASSESSMENT: The learning needs assessment revealed no barriers. FALL RISK ASSESSMENT: Fall risk assessment completed. Risk factors identified include severe pain and patient age greater than 65 years. Fall interventions initiated. Family at bedside. Call light in reach of patient and family. Instructed not to get up without assistance. SKIN INTEGRITY ASSESSMENT: Skin integrity risk assessment completed. No skin integrity risk identified. --02:20 Rebekah Zavala. PROBLEMS: Lukemia. Malignant Lymphoma. Intervertebral Disc Disease. Neck Injury. Back Injury. Neck Pain. Back Pain. Multiple Sclerosis. Hypertension. Chronic Headache. --02:16 Rebekah Zavala. ADDITIONAL SURGERIES: Breast reduction . Hysterectomy. Tonsillectomy. --02:16 Rebekah Zavala. Interventions ID band on patient. To treatment room. --02:20 Rebekah Zavala. PHYSICAL ASSESSMENT Ambulatory to room. GENERAL / NEURO / PSYCH: Alert. Oriented X 4. She appears in pain and appears uncomfortable. HEENT: No facial asymmetry noted. Mucous membranes are pink. RESPIRATORY: Respirations not labored. Chest nontender. Breath sounds within normal limits. CVS: Cardiac rhythm: sinus tachycardia. Pulses within normal limits. GI / : Abdomen soft and nontender. SKIN: Skin intact. Skin is warm and dry. Normal skin turgor. --02:22 Rebekah Zavala BACK: Normal inspection of the back. ROM of the back is normal. --02:24 Rebekah Zavala. NURSING PROGRESS NOTES Monitoring of patient in place. Head of bed elevated. Reassurance given. Two patient identifiers checked. Call light placed in reach. Side rails up x 1. Bed placed in lowest position. Brakes of bed on. Patient ready for evaluation- ED physician notified. --02:22 Rebekah Zavala 03:02 09/17/2016 Toradol (Ketorolac Tromethamine) IM 60 mg given. Given in the right gluteus maryan. Allergies verified and confirmed 5 rights. --03:07 Rebekah Zavala 03:02 09/17/2016 Dilaudid (HYDROmorphone HCl PF) IM 1 mg given. Given in the right gluteus maryan. Allergies verified, confirmed 5 rights and sedative warning given to the patient and patient's family. --03:07 Rebekah Zavala. DISPOSITION / DISCHARGE 03:00 09/17/16. Condition at departure: stable. No learning barriers present. Discharge instructions provided and reviewed with the patient and spouse. Reviewed warnings (Do not drive while on seditive medications). Reviewed medication(s) side effects, precautions, dosing and course information. Prescription(s) given to the patient. Patient verbalized understanding. Written instructions provided in Luxembourgish. ( Follow up as scheduled in two weeks with pain clinic.). The patient was discharged by the physician. She was discharged home and accompanied by spouse. She left the Emergency Department ambulatory and via private vehicle. Spouse driving. --03:12 Rebekah Zavala 03:07 09/17/16. BP: 113/57. HR: 71. RR: 20. O2 saturation: 97% on room air. Temp: 98.5 F (oral). Pain level now: 02/11. --03:12 Rebekah Zavala. Locked/Released at 09/19/2016 20:56 by Rebekah Zavala,
--- NOTE | 2016-09-17 02:46 | ED ORDER SUMMARY ---
..... Patient: ANILA RAMÍREZ OrderSheet [facility] VisitID: [id number] [address] [place] [address] 65y, F Registration Date/Time: 09/17/2016 ORDER SHEET Weight: 66.6 kg (stated) Allergies: Compazine, Phenothiazenes, Promethazine HCl, Sulfa Drugs GENERAL ORDERS: MEDICATION ORDERS: Toradol IM 60 mg (NOW) (02:43 09/17/2016 Matthew MADDEN) (Ack 2:50 HSoule) (3:07 HSoule) Dilaudid IM 1 mg (NOW) (:43 09/17/2016 Matthew MADDEN) (Ack 2:50 HSoule) (3:07 HSoule) IV FLUIDS: ORDER SHEET NOTES: [Electronically signed by Vick Rosales MD (19:40 09/18/2016)] [Electronically signed by Rebekah Zavala (20:56 09/19/2016)] [Electronically locked/signed by Rebekah Zavala (20:56 09/19/2016)]
--- NOTE | 2016-09-17 02:46 | ED ORDER SUMMARY ---
..... Patient: ANILA RAMÍREZ OrderSheet [facility] VisitID: [id number] [address] [place] [address] 65y, F Registration Date/Time: 09/17/2016 ORDER SHEET Weight: 66.6 kg (stated) Allergies: Compazine, Phenothiazenes, Promethazine HCl, Sulfa Drugs GENERAL ORDERS: MEDICATION ORDERS: Toradol IM 60 mg (NOW) (02:43 09/17/2016 Matthew MADDEN) (Ack 2:50 HSoule) (3:07 HSoule) Dilaudid IM 1 mg (NOW) (:43 09/17/2016 Matthew MADDEN) (Ack 2:50 HSoule) (3:07 HSoule) IV FLUIDS: ORDER SHEET NOTES: [Electronically signed by Vick Rosales MD (19:40 09/18/2016)] [Electronically signed by Rebekah Zavala (20:56 09/19/2016)] [Electronically locked/signed by Rebekah Zavala (20:56 09/19/2016)]
--- NOTE | 2016-09-19 20:56 | ED MAR SUMMARY ---
..... Medication Administration Record [facility] [address] [place] [address] Patient: ANILA RAMÍREZ Visit ID: [id number] 65y, F Weight: 66.6 kg Height/Length: 62 in BMI: 26.9 ALLERGIES: Compazine, Phenothiazenes, Promethazine HCl, Sulfa Drugs Given 03:09/17/2016 Rebekah Zavala, Medication Administered: TORADOL [IM] (KETOROLAC TROMETHAMINE), Dose: 60 mg IM. Medication Ordered: Toradol IM 60 mg (NOW). Given 03:09/17/2016 Rebekah Zavala, Medication Administered: DILAUDID [IM] (HYDROMORPHONE HCL PF), Dose: 1 mg IM. Medication Ordered: Dilaudid IM 1 mg (NOW).
--- NOTE | 2016-09-19 20:56 | ED MED RECONCILIATION SUMMARY ---
Patient: ANILA RAMÍREZ Medication Reconciliation Report [facility] VisitID: [id number] [address] [place] [address] 65y, F Registration Date/Time: 09/17/2016 Weight: 66.6 kg Height/Length: 62 in. BMI: 26.9 ALLERGIES: Compazine, Phenothiazenes, Promethazine HCl, Sulfa Drugs The patient's Home Medications are listed below: CONTINUE TAKING THE FOLLOWING MEDICATIONS: Copaxone Subcutaneous (20 mg/mL), 1-2 x daily Gabapentin Oral KCL 10 meq, daily Lasix Oral 20 mg, daily Lipitor Oral 20 mg, daily Multivitamins Oral Nifedical XL Oral (30 mg) 1 tablet, daily PriLOSEC Oral 40 mg, daily TiZANidine HCl Oral (2 mg) 1-2, 2x a day Trazodone HCl Oral 100 mg, 2 tabs Venlafaxine HCl ER Oral (75 mg) 2 tablets, 2 x daily Vit D3 The source(s) of the original Home Medication information: Not obtained. The following Medications were given to the patient in the Emergency Department: Toradol [IM] IM 60 mg, administered: 09/17/2016 3:02:00 AM Dilaudid [IM] IM 1 mg, administered: 09/17/2016 3:02:00 AM The following Medications were prescribed to the patient: Hydrocodone/APAP 5mg/325mg: take 1 to 2 orally every 6 hours as needed for pain. Dispense fifteen (15). No refills. -- Vick Rosales MD
--- NOTE | 2016-09-19 20:56 | ED MAR SUMMARY ---
..... Medication Administration Record [facility] [address] [place] [address] Patient: ANILA RAMÍREZ Visit ID: [id number] 65y, F Weight: 66.6 kg Height/Length: 62 in BMI: 26.9 ALLERGIES: Compazine, Phenothiazenes, Promethazine HCl, Sulfa Drugs Given 03:09/17/2016 Rebekah Zavala, Medication Administered: TORADOL [IM] (KETOROLAC TROMETHAMINE), Dose: 60 mg IM. Medication Ordered: Toradol IM 60 mg (NOW). Given 03:09/17/2016 Rebekah Zavala, Medication Administered: DILAUDID [IM] (HYDROMORPHONE HCL PF), Dose: 1 mg IM. Medication Ordered: Dilaudid IM 1 mg (NOW).
--- NOTE | 2016-09-19 20:56 | ED MED RECONCILIATION SUMMARY ---
Patient: ANILA RAMÍREZ Medication Reconciliation Report [facility] VisitID: [id number] [address] [place] [address] 65y, F Registration Date/Time: 09/17/2016 Weight: 66.6 kg Height/Length: 62 in. BMI: 26.9 ALLERGIES: Compazine, Phenothiazenes, Promethazine HCl, Sulfa Drugs The patient's Home Medications are listed below: CONTINUE TAKING THE FOLLOWING MEDICATIONS: Copaxone Subcutaneous (20 mg/mL), 1-2 x daily Gabapentin Oral KCL 10 meq, daily Lasix Oral 20 mg, daily Lipitor Oral 20 mg, daily Multivitamins Oral Nifedical XL Oral (30 mg) 1 tablet, daily PriLOSEC Oral 40 mg, daily TiZANidine HCl Oral (2 mg) 1-2, 2x a day Trazodone HCl Oral 100 mg, 2 tabs Venlafaxine HCl ER Oral (75 mg) 2 tablets, 2 x daily Vit D3 The source(s) of the original Home Medication information: Not obtained. The following Medications were given to the patient in the Emergency Department: Toradol [IM] IM 60 mg, administered: 09/17/2016 3:02:00 AM Dilaudid [IM] IM 1 mg, administered: 09/17/2016 3:02:00 AM The following Medications were prescribed to the patient: Hydrocodone/APAP 5mg/325mg: take 1 to 2 orally every 6 hours as needed for pain. Dispense fifteen (15). No refills. -- Vick Rosales MD
--- NOTE | 2016-09-19 20:56 | ED DISCHARGE INSTRUCTIONS ---
Patient: ANILA RAMÍREZ General Instructions [facility] VisitID: [id number] [address] [place] [address] 65y, F Registration Date/Time: 09/17/2016 Chronic low back pain. INSTRUCTIONS Apply moist heat for 15-20 minutes three times a day for one weeks. Limit lifting. No strenuous activity. (The ER cannot refill anymore pain medication prescriptions.). Warnings: SEDATIVE MEDICATION: You were given sedative medication during your visit. Do not drive or operate dangerous machinery. Your Current Medications: CONTINUE TAKING THE FOLLOWING MEDICATIONS: Copaxone Subcutaneous : Kit 20 mg/mL, 1-2 x daily. Gabapentin Oral. KCL : 10 meq daily. Lasix Oral : 20 mg daily. Lipitor Oral : 20 mg daily. Multivitamins Oral. Nifedical XL Oral : Tablet Extended Release 24 Hour 30 mg, 1 tablet daily. PriLOSEC Oral : 40 mg daily. TiZANidine HCl Oral : Capsule 2 mg, 1-2 2x a day. Trazodone HCl Oral : 100 mg, 2 tabs. Venlafaxine HCl ER Oral : Tablet Extended Release 24 Hour 75 mg, 2 tablets 2 x daily. Vit D3*. Prescription Medications: Hydrocodone/APAP 5mg/325mg: take 1 to 2 orally every 6 hours as needed for pain. Dispense fifteen (15). No refills. Follow-up: Follow up with a pain management clinic in two weeks as scheduled. Understanding of the discharge instructions verbalized by patient and family. Limit lifting. No strenuous activity. (Electronically signed by Vick Rosales MD 09/18/2016 19:40)
--- NOTE | 2016-09-19 20:56 | ED DISCHARGE INSTRUCTIONS ---
Patient: ANILA RAMÍREZ General Instructions [facility] VisitID: [id number] [address] [place] [address] 65y, F Registration Date/Time: 09/17/2016 Chronic low back pain. INSTRUCTIONS Apply moist heat for 15-20 minutes three times a day for one weeks. Limit lifting. No strenuous activity. (The ER cannot refill anymore pain medication prescriptions.). Warnings: SEDATIVE MEDICATION: You were given sedative medication during your visit. Do not drive or operate dangerous machinery. Your Current Medications: CONTINUE TAKING THE FOLLOWING MEDICATIONS: Copaxone Subcutaneous : Kit 20 mg/mL, 1-2 x daily. Gabapentin Oral. KCL : 10 meq daily. Lasix Oral : 20 mg daily. Lipitor Oral : 20 mg daily. Multivitamins Oral. Nifedical XL Oral : Tablet Extended Release 24 Hour 30 mg, 1 tablet daily. PriLOSEC Oral : 40 mg daily. TiZANidine HCl Oral : Capsule 2 mg, 1-2 2x a day. Trazodone HCl Oral : 100 mg, 2 tabs. Venlafaxine HCl ER Oral : Tablet Extended Release 24 Hour 75 mg, 2 tablets 2 x daily. Vit D3*. Prescription Medications: Hydrocodone/APAP 5mg/325mg: take 1 to 2 orally every 6 hours as needed for pain. Dispense fifteen (15). No refills. Follow-up: Follow up with a pain management clinic in two weeks as scheduled. Understanding of the discharge instructions verbalized by patient and family. Limit lifting. No strenuous activity. (Electronically signed by Vick Rosales MD 09/18/2016 19:40)
== END 2016-09-17 03:00 | disposition home or self-care (01) ==
LOC: ED SRH 01:57
DX: M54.5 Low back pain (principal); G89.29 Other chronic pain; I10 Essential (primary) hypertension; Z79.899 Other long term (current) drug therapy; Z88.2 Allergy status to sulfonamides; Z88.8 Allergy status to other drugs, medicaments and biological substances

== ENCOUNTER 2016-11-02 13:49 | Emergency (ER) | payer OTHER ==
--- NOTE | 2016-11-02 15:26 | ED NURSING NOTES ---
Clinical Report - Nurses [facility] [address] [place] [address] 11/02/2016 13:52 Patient: ANILA RAMÍREZ TRIAGE Triage time 14:02. Acuity: LEVEL 3. Chief Complaint: FALL while walking, onto a concrete surface and landed face down and on their knees; lost balance. Alert. No acute distress. SEPSIS SCREEN: Sepsis Screen. Negative (no infection suspected/documented). --14:19 La Benoit R.N. 14:02 11/02/16. BP: 99/43. HR: 74. RR: 16. O2 saturation: 99%. Temp: 97.9 F. --14:19 La Benoit R.N. 14:20 11/02/16. Pain level now: 02/11. --14:20 La Benoit R.N. Weight: 81.6 kg stated. Height/Length: 63 inches Per Patient. BMI: 31.9. --14:01 La Benoit R.N. Medications Cobaxone. --14:14 La Benoit R.N. Gabapentin Oral (Tablet 600 mg) 1 tablet, 3x a day (takes 2 tabs at HS). --14:15 La Benoit R.N. KCL 10 meq, daily. --14:16 La Benoit R.N. Lasix Oral 20 mg, daily. --14:16 La Benoit R.N. Lipitor Oral 20 mg, daily. --14:16 La Benoit R.N. Multivitamins Oral 1 pill, daily. --14:16 La Benoit R.N. NIFEdipine Oral 30 mg, daily. --14:17 La Benoit R.N. PriLOSEC Oral 40 mg, daily. --14:17 La Benoit R.N. TiZANidine HCl Oral (Tablet 2 mg) 2 tablets, 2x a day. --14:18 La Benoit R.N. TraZODone HCl Oral 100 mg, at bedtime. --14:18 La Benoit R.N. Venlafaxine HCl ER Oral (Capsule Extended Release 24 Hour 75 mg) 2 capsules, bid. --14:19 La Benoit R.N. Allergies Sulfa products. --14:06 La Benoit R.N. Anti nausea meds. --14:06 La Benoit R.N. History Arrived by private vehicle. Historian: patient and family. Accompanied by family. This occurred just prior to arrival. Occurred ([employer] office). ( pt was taking dog to [employer] and tripped on the wheelchair ramp landing on her r knee and hitting her face on her husbands shoe). She has had neck pain (today). 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 Trauma activation: Pre-hospital notification of patient arrival was not received. SURGERY HX: Breast biopsy. Carpal tunnel surgery. Had hysterectomy. ( breast reduction). SOCIAL HX: Never smoker. No alcohol use or drug use. No infectious disease exposure. SELF HARM ASSESSMENT: A self harm assessment was performed. The patient answered "no" to the question "Do you have thoughts of harming or killing yourself?". ABUSE ASSESSMENT: Abuse assessment: ("yes") The patient was asked "Do you feel safe in your home?". --14:19 La Benoit R.N. Primary physician (Kolton Baron). --14:25 La Benoit R.N. Interventions ID band on patient. To room. --14:19 La Benoit R.N. PHYSICAL ASSESSMENT To room via wheelchair. Patient gowned. GENERAL / NEURO / PSYCH: Alert. Oriented X 4. Appears in pain. HEENT: Head: superficial abrasion localized to the right side of the head. RESPIRATORY: Respirations not labored. Chest nontender. Breath sounds within normal limits. CVS: Normal heart rate and rhythm. Pulses within normal limits. Capillary refill less than 2 seconds. GI / : Abdomen soft and nontender. EXTREMITIES: Right knee: tenderness, swelling and erythema. Limited ROM secondary to pain. SKIN: Skin intact. Skin is warm and dry. --14:22 La Benoit R.N. In place: ice (pt assisted onto the gurney and gowned by nurse and .). --14:23 La Benoit R.N. NURSING PROGRESS NOTES Patient gowned. Reassurance given. Patient identifiers checked. Call light placed in reach. Side rails up. Bed placed in lowest position. Brakes of chair on. Patient ready for evaluation- ED physician notified. --14:24 La Benoit R.N. 15:00 11/02/2016 Toradol (Ketorolac Tromethamine) IM 60 mg given. Given in the right anterior lateral thigh. Allergies verified and confirmed 5 rights. --15:00 La Benoit R.N. 15:00. ( xrays complete). --15:03 La Benoit R.N. Immobilizer applied to right knee by security system technician; distal pulses intact, sensation intact and motor function within normal limits. --15:17 La Benoit R.N. 4 inch evelin bandage applied to right knee and left knee by tech; distal pulses intact, sensation intact and motor function within normal limits. Immobilizer applied to right knee by security system technician; distal pulses intact, sensation intact and motor function within normal limits. --15:37 Yasmin Melgar. DISPOSITION / DISCHARGE Departure time: 16:06. No learning barriers present. Discharge instructions provided and reviewed with the patient and spouse. Reviewed medication(s). Treatments reviewed. Activity restrictions reviewed. Follow up contact number Gil. Patient and spouse verbalized understanding. Written instructions provided in Ecuadorean. The patient was discharged by the physician. She was discharged home and accompanied by spouse. She left the Emergency Department in a wheelchair and via private vehicle. Spouse driving. --16:07 La Benoit R.N. 16:00 11/02/16. BP: 93/35. HR: 62. RR: 16. O2 saturation: 100%. Temp: 98.6 F. Pain level now: 02/11. --16:07 La Benoit R.N. Locked/Released at 11/02/2016 19:11 by La Benoit R.N.
--- NOTE | 2016-11-02 15:26 | ED CLINICAL REPORT ---
Clinical Report - Physicians/Mid Levels [facility]ly [facility] [address] [place] [address] 11/02/2016 13:52 Patient: ANILA RAMÍREZ Time Seen: 14:22. Arrived- By private vehicle. Historian- patient and family. HISTORY OF PRESENT ILLNESS Location of injuries- face, right knee and left knee. Chief Complaint: FALL and INJURY TO HEAD. The injury occurred just prior to arrival. Fell while walking; tripped (tripped on ramp with dog). 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 The patient complains of moderate pain. The patient sustained a blow to the head. (struck her face on her who was standing next to her). No neck pain, loss of consciousness or seizure. Not dazed. REVIEW OF SYSTEMS The patient complains of pain on weight bearing. No numbness, loss of vision, hearing loss, chest pain or difficulty breathing. No weakness, nausea, abdominal pain, laceration or fever. No vomiting or urinary problems. All systems otherwise negative, except as recorded above. PAST HISTORY Malignant Lymphoma. Myofascial Strain. Intervertebral Disc Disease. Neck Injury. Back Injury. Chronic Neck Pain. Chronic Back Pain. Multiple Sclerosis. Hypertension. Chronic Headache. Depression SURGERIES: Breast reduction . Hysterectomy. Tonsillectomy. Tetanus immunization status is up-to-date. Medications: Venlafaxine HCl ER Oral (Capsule Extended Release 24 Hour 75 mg) 2 capsules, bid. TraZODone HCl Oral 100 mg, at bedtime. TiZANidine HCl Oral (Tablet 2 mg) 2 tablets, 2x a day. PriLOSEC Oral 40 mg, daily. NIFEdipine Oral 30 mg, daily. Multivitamins Oral 1 pill, daily. Lipitor Oral 20 mg, daily. Lasix Oral 20 mg, daily. KCL 10 meq, daily. Gabapentin Oral (Tablet 600 mg) 1 tablet, 3x a day (takes 2 tabs at HS). Cobaxone. Allergies: Anti nausea meds. Sulfa products. SOCIAL HISTORY Never smoker. No alcohol use or drug use. Residence: [place] she lives with spouse. ADDITIONAL NOTES The nursing notes have been reviewed. PHYSICAL EXAM Vital Signs: 11/02/2016 14:02 BP: 99/43. HR: 74. RR: 16. O2 saturation: 99%. Temp: 97.9 F. Appearance: Alert. Oriented X3. Patient in mild distress. Head: No Samuel's sign or raccoon eyes. Eyes: Pupils equal, round and reactive to light. EOM intact. Right periorbital area: mild tenderness and swelling and small abrasion and ecchymosis of the lateral aspect and supraorbital and infraorbital area of the periorbital area. No puncture wound or foreign body. No laceration or deformity. No entrapment of extraocular muscles or gaze palsy. ENT: No dental injury. Pharynx normal. Neck: No decreased ROM in the neck. No pain with movement of head/neck. Painless ROM. Non-tender. No vertebral tenderness. CVS: Heart sounds normal. Pulses normal. Respiratory: Breath sounds normal. Chest nontender. No rales, wheezes, rhonchi or crepitus. Abdomen: No visible injury. Soft and nontender. No mass. Back: No tenderness. ROM normal. No vertebral point tenderness. Skin: No cyanosis. No pallor. Skin not cool on palpation. (bilateral, superficial knee abrasions). No diaphoresis. Extremities: Pelvis stable. Right knee: moderate tenderness and swelling and small abrasion and ecchymosis located in the patella, medial joint line, medial collateral ligament, lateral joint line and lateral collateral ligament. Limited ROM secondary to pain. Neurovascular intact distally. No ligamentous laxity present. No laceration, puncture wound, foreign body or deformity. Left knee: moderate tenderness, mild swelling and small abrasion and ecchymosis located in the patella. Neurovascular intact distally. No ligamentous laxity present. No joint effusion. No erythema or laceration. No limitation in ROM. Neuro: Devin Coma Scale: 15- eyes open spontaneously (4); best verbal response- oriented x 3 (5); best motor response- obeys commands (6). Oriented X 3. No motor deficit. No sensory deficit. LABS, X-RAYS, AND EKG Rt Knee X-ray: No fracture. Normal alignment. No bony lesion or air in the soft tissue. Views: AP, lateral, "[place]" and oblique. Technique: good. The X-rays were interpreted contemporaneously by me. A comparison with prior films (no change from left side x-rays). Lt Knee X-ray: No fracture. Normal alignment. No bony lesion, air in the soft tissue or foreign body. Views: AP, lateral, "[place]" and oblique. The X-rays were interpreted contemporaneously by me. A comparison with prior films (no change from right side x-rays). PROGRESS AND PROCEDURES PROCEDURES (ANDRE wrap applied by tech to both knees; Knee immobilizer applied to right knee). Course of Care: Toradol 60mg IM given. Clearly mechanical mechanism of injury Patient is stable. Physical exam findings are improved. Symptoms better. No sign of fracture or instability in the knees. She will use a wheelchair and / or walker with assistance from her and caregiver. Patient/family counseled. Old ED records reviewed. Patient has had multiple ED visits (SALUD with 12 visits to area ED's in past 12 months; PDMP with #[address] Dennis Fam on 10/16/16; pt has received 6 prescriptions for narcotics from the [facility] ED in past 3 months). Disposition: Discharged. Condition: stable and improved. CLINICAL IMPRESSION Contusion to the right cheek area, right knee and left knee. Traumatic right prepatellar bursitis. INSTRUCTIONS Apply ice. Use crutches. Wear knee immobilizer. Wear elastic wrap (Andre wrap) as directed until better. (Ambulate only with assistance or use a wheelchair for the next several days if you have trouble walking). Warnings: GENERAL WARNINGS: Return or contact your physician immediately if your condition worsens or changes unexpectedly, if not improving as expected, or if other problems arise. Your Current Medications: CONTINUE TAKING THE FOLLOWING MEDICATIONS: Cobaxone*. Gabapentin Oral : Tablet 600 mg, 1 tablet 3x a day, takes 2 tabs at HS. KCL : 10 meq daily. Lasix Oral : 20 mg daily. Lipitor Oral : 20 mg daily. Multivitamins Oral : 1 pill daily. NIFEdipine Oral : 30 mg daily. PriLOSEC Oral : 40 mg daily. TiZANidine HCl Oral : Tablet 2 mg, 2 tablets 2x a day. TraZODone HCl Oral : 100 mg at bedtime. Venlafaxine HCl ER Oral : Capsule Extended Release 24 Hour 75 mg, 2 capsules bid. Prescription Medications: Ibuprofen 600 mg tablets: take 1 tablet orally every 8 hours as needed for pain, stiffness or swelling. Dispense twenty (20). No refill. Carafate 1 gm tablets: take 1 orally four times daily (1 hour before meals and at bedtime). Dispense sixty (60). No refills. Substitution is permissible. Follow-up with: Follow up Saturday. Reason for referral: AN APPOINTMENT HAS BEEN MADE FOR YOU FOR NOVEMBER 05 at 11:00 am. Phone number [phone]; Address: [address] [place] [address]. Follow-up with: Trenton Shah M.D., Ortho, , [address], , [place], [phone] Follow up in about three days. Call for an appointment. (Electronically signed by Hector Carl DO 11/02/2016 22:23)
--- NOTE | 2016-11-02 15:26 | ED ORDER SUMMARY ---
..... Patient: ANILA RAMÍREZ OrderSheet [facility] VisitID: [id number] [address] [place] [address] 66y, F Registration Date/Time: 11/02/2016 ORDER SHEET Weight: 81.6 kg (stated) Allergies: Sulfa products, Anti nausea meds GENERAL ORDERS: Knee 4V Bilat Urgent (14:30 11/02/2016 [facility] DO) (Ack 14:35 RKaruga) (15:33 JBest R.N.) Andre Wrap (bilateral knees) (14:42 11/02/2016 [facility]) (Ack 14:58 RKaruga) (15:33 JBest R.N.) Knee Immobilizer (right knee) (14:42 11/02/2016 [facility]) (Ack 14:58 RKaruga) (15:34 JBest R.N.) MEDICATION ORDERS: Toradol IM 60 mg (NOW) (14:30 11/02/2016 [facility] DO) (15:00 JBest R.N.) IV FLUIDS: ORDER SHEET NOTES: [Electronically signed by La Benoit R.N. (19:11 11/02/2016)] [Electronically signed by Hector Carl DO (22:23 11/02/2016)] [Electronically locked/signed by La Benoit R.N. (19:11 11/02/2016)]
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
--- NOTE | 2016-11-02 15:26 | ED CLINICAL REPORT ---
Clinical Report - Physicians/Mid Levels [facility] [address] [place] [address] 11/02/2016 13:52 Patient: ANILA RAMÍREZ Time Seen: 14:22. Arrived- By private vehicle. Historian- patient and family. HISTORY OF PRESENT ILLNESS Location of injuries- face, right knee and left knee. Chief Complaint: FALL and INJURY TO HEAD. The injury occurred just prior to arrival. Fell while walking; tripped (tripped on ramp with dog). 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 The patient complains of moderate pain. The patient sustained a blow to the head. (struck her face on her who was standing next to her). No neck pain, loss of consciousness or seizure. Not dazed. REVIEW OF SYSTEMS The patient complains of pain on weight bearing. No numbness, loss of vision, hearing loss, chest pain or difficulty breathing. No weakness, nausea, abdominal pain, laceration or fever. No vomiting or urinary problems. All systems otherwise negative, except as recorded above. PAST HISTORY Malignant Lymphoma. Myofascial Strain. Intervertebral Disc Disease. Neck Injury. Back Injury. Chronic Neck Pain. Chronic Back Pain. Multiple Sclerosis. Hypertension. Chronic Headache. Depression SURGERIES: Breast reduction . Hysterectomy. Tonsillectomy. Tetanus immunization status is up-to-date. Medications: Venlafaxine HCl ER Oral (Capsule Extended Release 24 Hour 75 mg) 2 capsules, bid. TraZODone HCl Oral 100 mg, at bedtime. TiZANidine HCl Oral (Tablet 2 mg) 2 tablets, 2x a day. PriLOSEC Oral 40 mg, daily. NIFEdipine Oral 30 mg, daily. Multivitamins Oral 1 pill, daily. Lipitor Oral 20 mg, daily. Lasix Oral 20 mg, daily. KCL 10 meq, daily. Gabapentin Oral (Tablet 600 mg) 1 tablet, 3x a day (takes 2 tabs at HS). Cobaxone. Allergies: Anti nausea meds. Sulfa products. SOCIAL HISTORY Never smoker. No alcohol use or drug use. Residence: [place] she lives with spouse. ADDITIONAL NOTES The nursing notes have been reviewed. PHYSICAL EXAM Vital Signs: 11/02/2016 14:02 BP: 99/43. HR: 74. RR: 16. O2 saturation: 99%. Temp: 97.9 F. Appearance: Alert. Oriented X3. Patient in mild distress. Head: No Samuel's sign or raccoon eyes. Eyes: Pupils equal, round and reactive to light. EOM intact. Right periorbital area: mild tenderness and swelling and small abrasion and ecchymosis of the lateral aspect and supraorbital and infraorbital area of the periorbital area. No puncture wound or foreign body. No laceration or deformity. No entrapment of extraocular muscles or gaze palsy. ENT: No dental injury. Pharynx normal. Neck: No decreased ROM in the neck. No pain with movement of head/neck. Painless ROM. Non-tender. No vertebral tenderness. CVS: Heart sounds normal. Pulses normal. Respiratory: Breath sounds normal. Chest nontender. No rales, wheezes, rhonchi or crepitus. Abdomen: No visible injury. Soft and nontender. No mass. Back: No tenderness. ROM normal. No vertebral point tenderness. Skin: No cyanosis. No pallor. Skin not cool on palpation. (bilateral, superficial knee abrasions). No diaphoresis. Extremities: Pelvis stable. Right knee: moderate tenderness and swelling and small abrasion and ecchymosis located in the patella, medial joint line, medial collateral ligament, lateral joint line and lateral collateral ligament. Limited ROM secondary to pain. Neurovascular intact distally. No ligamentous laxity present. No laceration, puncture wound, foreign body or deformity. Left knee: moderate tenderness, mild swelling and small abrasion and ecchymosis located in the patella. Neurovascular intact distally. No ligamentous laxity present. No joint effusion. No erythema or laceration. No limitation in ROM. Neuro: Devin Coma Scale: 15- eyes open spontaneously (4); best verbal response- oriented x 3 (5); best motor response- obeys commands (6). Oriented X 3. No motor deficit. No sensory deficit. LABS, X-RAYS, AND EKG Rt Knee X-ray: No fracture. Normal alignment. No bony lesion or air in the soft tissue. Views: AP, lateral, "[place]" and oblique. Technique: good. The X-rays were interpreted contemporaneously by me. A comparison with prior films (no change from left side x-rays). Lt Knee X-ray: No fracture. Normal alignment. No bony lesion, air in the soft tissue or foreign body. Views: AP, lateral, "[place]" and oblique. The X-rays were interpreted contemporaneously by me. A comparison with prior films (no change from right side x-rays). PROGRESS AND PROCEDURES PROCEDURES (ANDRE wrap applied by tech to both knees; Knee immobilizer applied to right knee). Course of Care: Toradol 60mg IM given. Clearly mechanical mechanism of injury Patient is stable. Physical exam findings are improved. Symptoms better. No sign of fracture or instability in the knees. She will use a wheelchair and / or walker with assistance from her and caregiver. Patient/family counseled. Old ED records reviewed. Patient has had multiple ED visits (SALUD with 12 visits to area ED's in past 12 months; PDMP with #[address] Dennis Fam on 10/16/16; pt has received 6 prescriptions for narcotics from the [facility] ED in past 3 months). Disposition: Discharged. Condition: stable and improved. CLINICAL IMPRESSION Contusion to the right cheek area, right knee and left knee. Traumatic right prepatellar bursitis. INSTRUCTIONS Apply ice. Use crutches. Wear knee immobilizer. Wear elastic wrap (Andre wrap) as directed until better. (Ambulate only with assistance or use a wheelchair for the next several days if you have trouble walking). Warnings: GENERAL WARNINGS: Return or contact your physician immediately if your condition worsens or changes unexpectedly, if not improving as expected, or if other problems arise. Your Current Medications: CONTINUE TAKING THE FOLLOWING MEDICATIONS: Cobaxone*. Gabapentin Oral : Tablet 600 mg, 1 tablet 3x a day, takes 2 tabs at HS. KCL : 10 meq daily. Lasix Oral : 20 mg daily. Lipitor Oral : 20 mg daily. Multivitamins Oral : 1 pill daily. NIFEdipine Oral : 30 mg daily. PriLOSEC Oral : 40 mg daily. TiZANidine HCl Oral : Tablet 2 mg, 2 tablets 2x a day. TraZODone HCl Oral : 100 mg at bedtime. Venlafaxine HCl ER Oral : Capsule Extended Release 24 Hour 75 mg, 2 capsules bid. Prescription Medications: Ibuprofen 600 mg tablets: take 1 tablet orally every 8 hours as needed for pain, stiffness or swelling. Dispense twenty (20). No refill. Carafate 1 gm tablets: take 1 orally four times daily (1 hour before meals and at bedtime). Dispense sixty (60). No refills. Substitution is permissible. Follow-up with: Follow up Saturday. Reason for referral: AN APPOINTMENT HAS BEEN MADE FOR YOU FOR NOVEMBER 05 at 11:00 am. Phone number [phone]; Address: [address] [place] [address]. Follow-up with: Trenton Shah M.D., Ortho, , [address], , [place], [phone] Follow up in about three days. Call for an appointment. (Electronically signed by Hector Carl DO 11/02/2016 22:23)
--- NOTE | 2016-11-02 15:26 | ED ORDER SUMMARY ---
..... Patient: ANILA RAMÍREZ OrderSheet [facility] VisitID: [id number] [address] [place] [address] 66y, F Registration Date/Time: 11/02/2016 ORDER SHEET Weight: 81.6 kg (stated) Allergies: Sulfa products, Anti nausea meds GENERAL ORDERS: Knee 4V Bilat Urgent (14:30 11/02/2016 [facility] DO) (Ack 14:35 RKaruga) (15:33 JBest R.N.) Andre Wrap (bilateral knees) (14:42 11/02/2016 [facility]) (Ack 14:58 RKaruga) (15:33 JBest R.N.) Knee Immobilizer (right knee) (14:42 11/02/2016 [facility]) (Ack 14:58 RKaruga) (15:34 JBest R.N.) MEDICATION ORDERS: Toradol IM 60 mg (NOW) (14:30 11/02/2016 [facility] DO) (15:00 JBest R.N.) IV FLUIDS: ORDER SHEET NOTES: [Electronically signed by La Benoit R.N. (19:11 11/02/2016)] [Electronically signed by Hector Carl DO (22:23 11/02/2016)] [Electronically locked/signed by La Benoit R.N. (19:11 11/02/2016)]
--- NOTE | 2016-11-02 15:32 | DIAGNOSTIC IMAGING REPORT ---
PROCEDURE: XR KNEE 4 VIEWS BILATERAL INDICATION: TRAUMA/INJURY TECHNIQUE: Four views of each knee. COMPARISON: None. FINDINGS: RIGHT KNEE: There is no fracture or dislocation. There is patellofemoral osteoarthritis. LEFT KNEE: There is no fracture or dislocation. There is patellofemoral osteoarthritis. IMPRESSION: 1. Patellofemoral osteoarthritis. No fracture or dislocation.
--- NOTE | 2016-11-02 22:23 | ED MED RECONCILIATION SUMMARY ---
Patient: ANILA RAMÍREZ Medication Reconciliation Report [facility] VisitID: [id number] [address] [place] [address] 66y, F Registration Date/Time: 11/02/2016 Weight: 81.6 kg Height/Length: 63 in. BMI: 31.9 ALLERGIES: Anti nausea meds, Sulfa products The patient's Home Medications are listed below: CONTINUE TAKING THE FOLLOWING MEDICATIONS: Cobaxone Gabapentin Oral (600 mg) 1 tablet, 3x a day, takes 2 tabs at HS KCL 10 meq, daily Lasix Oral 20 mg, daily Lipitor Oral 20 mg, daily Multivitamins Oral 1 pill, daily NIFEdipine Oral 30 mg, daily PriLOSEC Oral 40 mg, daily TiZANidine HCl Oral (2 mg) 2 tablets, 2x a day TraZODone HCl Oral 100 mg, at bedtime Venlafaxine HCl ER Oral (75 mg) 2 capsules, bid The source(s) of the original Home Medication information: Not obtained. The following Medications were given to the patient in the Emergency Department: Toradol [IM] IM 60 mg, administered: 11/02/2016 3:00:00 PM The following Medications were prescribed to the patient: Ibuprofen 600 mg tablets: take 1 tablet orally every 8 hours as needed for pain, stiffness or swelling. Dispense twenty (20). No refill. -- Hector Carl DO Carafate 1 gm tablets: take 1 orally four times daily (1 hour before meals and at bedtime). Dispense sixty (60). No refills. Substitution is permissible. -- Hector Carl DO
--- NOTE | 2016-11-02 22:23 | ED MAR SUMMARY ---
..... Medication Administration Record [facility] [address] [place] [address] Patient: ANILA RAMÍREZ Visit ID: [id number] 66y, F Weight: 81.6 kg Height/Length: 63 in BMI: 31.9 ALLERGIES: Anti nausea meds, Sulfa products Given 15:00 11/02/2016 La Benoit R.N. Medication Administered: TORADOL [IM] (KETOROLAC TROMETHAMINE), Dose: 60 mg IM. Medication Ordered: Toradol IM 60 mg (NOW).
--- NOTE | 2016-11-02 22:23 | ED MAR SUMMARY ---
..... Medication Administration Record [facility] [address] [place] [address] Patient: ANILA RAMÍREZ Visit ID: [id number] 66y, F Weight: 81.6 kg Height/Length: 63 in BMI: 31.9 ALLERGIES: Anti nausea meds, Sulfa products Given 15:00 11/02/2016 La Benoit R.N. Medication Administered: TORADOL [IM] (KETOROLAC TROMETHAMINE), Dose: 60 mg IM. Medication Ordered: Toradol IM 60 mg (NOW).
--- NOTE | 2016-11-02 22:23 | ED DISCHARGE INSTRUCTIONS ---
Patient: ANILA RAMÍREZ General Instructions [facility] VisitID: [id number] [address] [place] [address] 66y, F Registration Date/Time: 11/02/2016 Contusion to the right cheek area, right knee and left knee. Traumatic right prepatellar bursitis. INSTRUCTIONS Apply ice. Use crutches. Wear knee immobilizer. Wear elastic wrap (Andre wrap) as directed until better. (Ambulate only with assistance or use a wheelchair for the next several days if you have trouble walking). Warnings: GENERAL WARNINGS: Return or contact your physician immediately if your condition worsens or changes unexpectedly, if not improving as expected, or if other problems arise. Your Current Medications: CONTINUE TAKING THE FOLLOWING MEDICATIONS: Cobaxone*. Gabapentin Oral : Tablet 600 mg, 1 tablet 3x a day, takes 2 tabs at HS. KCL : 10 meq daily. Lasix Oral : 20 mg daily. Lipitor Oral : 20 mg daily. Multivitamins Oral : 1 pill daily. NIFEdipine Oral : 30 mg daily. PriLOSEC Oral : 40 mg daily. TiZANidine HCl Oral : Tablet 2 mg, 2 tablets 2x a day. TraZODone HCl Oral : 100 mg at bedtime. Venlafaxine HCl ER Oral : Capsule Extended Release 24 Hour 75 mg, 2 capsules bid. Prescription Medications: Ibuprofen 600 mg tablets: take 1 tablet orally every 8 hours as needed for pain, stiffness or swelling. Dispense twenty (20). No refill. Carafate 1 gm tablets: take 1 orally four times daily (1 hour before meals and at bedtime). Dispense sixty (60). No refills. Substitution is permissible. Follow-up with: Follow up Saturday. Reason for referral: AN APPOINTMENT HAS BEEN MADE FOR YOU FOR NOVEMBER 05 at 11:00 am. Phone number [phone]; Address: [address] [place] [address]. Follow-up with: Trenton Shah M.D., Ortho, , [address], [place], [id number] Follow up in about three days. Call for an appointment. ADDITIONAL INFORMATION Facial Contusion (With Wake-Up) A facial contusion is a bruise with swelling and sometimes bleeding under the skin. The swelling should start to go down within two days. Although there may be no signs of a serious injury at this time, symptoms may appear later which could be a sign of a more serious problem. Therefore, watch for the warning signs below. Home care The following guidelines will help you care for your injury at home: During the next 24 hours you must stay with someone who can watch you for the warning signs below. This person shouldwake you every two hoursto be sure that you can be awakened easily and that you respond normally. If you have swelling of the face, apply an ice pack (ice cubes in a plastic bag, wrapped in a towel) for 20 minutes every 12 hours until the swelling starts to go down. If you have scrapes or cuts on your face, clean them daily with soap and water. Apply an antibiotic ointment or cream for the first few days to prevent infection. You may use acetaminophen or ibuprofen to control pain, unless another pain medicine was prescribed.If you have chronic liver or kidney disease or ever had a stomach ulcer or GI bleeding, talk with your doctor before using these medicines. Do not use ibuprofen in children under six months of age. For the next 24 hours: Do not take alcohol, sedatives or medicines that make you sleepy. Do not drive or operate machinery. Avoid strenuous activities. No lifting or straining. If you have had any symptoms of aconcussiontoday (nausea, vomiting, dizziness, confusion, headache, memory loss or if you were knocked out), do not return to sports or any activity that could result in another head injury until all symptoms are gone and you have been cleared by your doctor. A second head injury before fully recovering from the first one can lead to serious brain injury. Follow-up care Follow up with your doctor in one week or as directed. Note:Any X-rays or CT scans taken will be reviewed by a radiologist. You will be notified of any new findings that may affect your care. When to seek medical care Get prompt medical attention if any of the following occur: Repeated vomiting Severe or worsening headache or dizziness Unusual drowsiness, or unable to awaken as usual Confusion or change in behavior or speech, memory loss, blurred vision Convulsion (seizure) Increasing scalp or face swelling Redness, warmth or pus from the swollen area Fluid drainage or bleeding from the nose or ears Fever of 100.4F (38C) or higher, or as directed by your health care provider Increasing jaw pain with chewing or increasing pain in the sinuses Nose looks crooked or cannot breathe through your nose after swelling goes down Contusion:Lower Extremity You have a CONTUSION of your LOWER extremity (leg, knee, ankle, foot, or toes). This causes local pain, swelling and sometimes bruising. There are no broken bones. This injury may take from a few days to a few weeks to heal. Home Care: 1) Keep your leg elevated to reduce pain and swelling. When sleeping, place a pillow under the injured leg. When sitting, support the injured leg so it is level with your waist. This is very important during the first 48 hours. 2) If CRUTCHES have been advised, do not bear full weight on the injured leg until you can do so without pain. You may return to sports when you are able to hop and run on the injured leg without pain. 3) Apply an ice pack (ice cubes in a plastic bag, wrapped in a towel) over the injured area for 20 minutes every 1-2 hours the first day for pain relief. Continue this 3-4 times a day until the pain and swelling goes away. 4) You may use acetaminophen (Tylenol) or ibuprofen (Motrin, Advil) to control pain, unless another pain medicine was prescribed. [ NOTE : If you have chronic liver or kidney disease or ever had a stomach ulcer or GI bleeding, talk with your doctor before using these medicines.] Follow Up with your doctor or this facility if you are not starting to improve within the next THREE days. [NOTE: If X-rays were taken, they will be reviewed by a radiologist. You will be notified of any new findings that may affect your care.] Get Prompt Medical Attention if any of the following occur: -- Pain or swelling increases -- Toes become cold, blue, numb or tingly -- Redness, warmth or drainage from the skin Bursitis The larger joints of the body are surrounded bybursa. These are small, flat fluid-filled sacs which help the gliding motion of the muscles and tendons over the joints. Bursitis is an inflammation of the bursa due to injury, overuse of the joint, or infection of the bursa itself. Symptoms include pain and tenderness over a joint that is made worse with movement. Bursitis is treated with an anti-inflammatory medicine and by resting the joint. More severe cases require injection of medicine directly into the bursa. Home Care: Apply an ice pack (ice cubes in a plastic bag, wrapped in a towel) over the injured area for 20 minutes every 1-2 hours the first day. Continue this 3-4 times a day until the pain and swelling improves. Rest the painful joint and protect it from movement. This will allow the inflammation to heal faster. You may take ibuprofen (Motrin, Advil) or naproxen (Aleve, Naprosyn) to treat pain and inflammation, unless another medicine was prescribed. If you can't take these medicines, acetaminophen (Tylenol) may help with the pain, but does not treat inflammation. [NOTE: If you have chronic liver or kidney disease or ever had a stomach ulcer or GI bleeding, talk with your doctor before using these medicines.] As your symptoms improve, begin gradual motion at the joint. Do not overuse the joint, which may cause the symptoms to flare up again. Follow Up With Your Doctor If Not Improving After Three Days Of Treatment. Get Prompt Medical Attention If Any Of The Following Occur: Redness over the painful area Increasing pain or swelling at the joint Fever of 100.4F (38C) or higher, or as directed by your healthcare provider Crutch Walking Crutch Adjustment Make sure the crutches you use are adjusted to fit you. When you stand, there should be room to fit 2-3 fingers between the top of the crutch and your armpit. Your elbow should be slightly bent when holding the hand nutter up. Crutch Walking: Place the crutches forward 12" in front of and 6" to the side of your feet. Lean your weight forward as you push down on the handgrips. Your weight should be on your hands and yourstrong leg, not your armpits . Let your body swing through, landing on the strong leg. Advance the crutches forward again. The crutch and the injured leg should move together. Going Up Steps: ("Up with the good") With both crutches on the same step as your feet, push down on the handgrips. Balancing with very light pressure on the weak leg, let your hands support your weight as you raise your strong leg onto the next higher step. Transfer all your weight to your strong leg (still bent) as you move the crutches up to the next step alongside the strong leg. With your weight evenly balanced on the two crutches and your strong leg, straighten your strong knee as you raise the weak leg up to the next step. Going Down Steps: ("Down with the bad") With both crutches on the same step as your feet, push down on the handgrips. With your weight evenly balanced on the two crutches and your strong leg, bend your strong knee as you lower the weak leg down to the next step. Let your strong leg support you (still bent) as you move the crutches down alongside the weak leg. Transfer your weight to your hands, balancing with very light pressure on the weak leg as you lower your strong leg alongside your weak leg. Knee Immobilizer A KNEE IMMOBILIZER is used to provide support and limit movement of the knee. This will make you more comfortable as your injury heals. Home Use: 1) Unless told otherwise, the knee brace should be worn whenever you are out of bed. You may wear it in bed while asleep for the first few nights or until the pain starts to go away. Otherwise, remove the brace at night to avoid muscle stiffness from lack of joint movement. 2) You can open the velcro brace to dress, bathe and apply ice packs as directed. Get Prompt Medical Attention if any of the following occur: -- Worsening pain in the knee -- Weakness or numbness or tingling in the foot -- Increased swelling, redness or warmth of the knee joint Andre Wrap An "Andre Bandage" refers to any elastic bandage wrap (2-6" wide). This is used to apply support and compression to an arm or leg. It will help prevent or reduce swelling also. When applying the bandage, it should not be stretched too tightly. A tight Andre Wrap will reduce circulation and cause tingling or numbness in the hand or foot. It may increase the pain under the bandage. If you get these symptoms, remove the wrap and rest the limb. Symptoms should go away within 1-2 hours. Once symptoms go away, reapply the bandage with less stretch. If symptoms do not go away after 1-2 hours with the bandage off, call your doctor or return to this facility promptly. Ibuprofen Oral tablet What is this medicine? IBUPROFEN (eye BYOO proe fen) is a non-steroidal anti-inflammatory drug (NSAID). It is used for dental pain, fever, headaches or migraines, osteoarthritis, rheumatoid arthritis, or painful monthly periods. It can also relieve minor aches and pains caused by a cold, flu, or sore throat. How should I use this medicine? Take this medicine by mouth with a glass of water. Follow the directions on the prescription label. Take this medicine with food if your stomach gets upset. Try to not lie down for at least 10 minutes after you take the medicine. Take your medicine at regular intervals. Do not take your medicine more often than directed. A special MedGuide will be given to you by the pharmacist with each prescription and refill. Be sure to read this information carefully each time. Talk to your mathematics education professor regarding the use of this medicine in children. Special care may be needed. What side effects may I notice from receiving this medicine? Side effects that you should report to your doctor or health child care attendant school as soon as possible: allergic reactions like skin rash, itching or hives, swelling of the face, lips, or tongue black or bloody stools, blood in the urine or in vomit breathing problems changes in vision chest pain general ill feeling or flu-like symptoms nausea or vomiting redness, blistering, peeling or loosening of the skin, including inside the mouth slurred speech or weakness on one side of the body stomach pain unexplained weight gain or swelling unusually weak or tired yellowing of eyes or skin Side effects that usually do not require medical attention (report to your doctor or health child care attendant school if they continue or are bothersome): constipation or diarrhea dizziness gas or heartburn stomach upset What may interact with this medicine? Do not take this medicine with any of the following medications: cidofovir ketorolac methotrexate pemetrexed This medicine may also interact with the following medications: alcohol aspirin diuretics lithium other drugs for inflammation like prednisone warfarin What if I miss a dose? If you miss a dose, take it as soon as you can. If it is almost time for your next dose, take only that dose. Do not take double or extra doses. Where should I keep my medicine? Keep out of the reach of children. Store at room temperature between 15 and 30 degrees C (59 and 86 degrees F). Keep container tightly closed. Throw away any unused medicine after the expiration date. What should I tell my health care provider before I take this medicine? They need to know if you have any of these conditions: asthma cigarette smoker drink more than 3 alcohol containing drinks a day heart disease or circulation problems such as heart failure or leg edema (fluid retention) high blood pressure kidney disease liver disease stomach bleeding or ulcers an unusual or allergic reaction to ibuprofen, aspirin, other NSAIDS, other medicines, foods, dyes, or preservatives or trying to get breast-feeding What should I watch for while using this medicine? Tell your doctor or healthcare professional if your symptoms do not start to get better or if they get worse. This medicine does not prevent heart attack or stroke. In fact, this medicine may increase the chance of a heart attack or stroke. The chance may increase with longer use of this medicine and in people who have heart disease. If you take aspirin to prevent heart attack or stroke, talk with your doctor or health child care attendant school. Do not take other medicines that contain aspirin, ibuprofen, or naproxen with this medicine. Side effects such as stomach upset, nausea, or ulcers may be more likely to occur. Many medicines available without a prescription should not be taken with this medicine. This medicine can cause ulcers and bleeding in the stomach and intestines at any time during treatment. Ulcers and bleeding can happen without warning symptoms and can cause . To reduce your risk, do not smoke cigarettes or drink alcohol while you are taking this medicine. You may get drowsy or dizzy. Do not drive, use machinery, or do anything that needs mental alertness until you know how this medicine affects you. Do not stand or sit up quickly, especially if you are an older patient. This reduces the risk of dizzy or fainting spells. This medicine can cause you to bleed more easily. Try to avoid damage to your teeth and gums when you brush or floss your teeth. Sucralfate Oral tablet What is this medicine? SUCRALFATE (LIZ dhruv fate) helps to treat ulcers of the intestine. How should I use this medicine? Take this medicine by mouth with a glass of water. Follow the directions on the prescription label. This medicine works best if you take it on an empty stomach, 1 hour before meals. Take your doses at regular intervals. Do not take your medicine more often than directed. Do not stop taking except on your doctor's advice. Talk to your mathematics education professor regarding the use of this medicine in children. Special care may be needed. What side effects may I notice from receiving this medicine? Side effects that you should report to your doctor or health child care attendant school as soon as possible: allergic reactions like skin rash, itching or hives, swelling of the face, lips, or tongue difficulty breathing Side effects that usually do not require medical attention (report to your doctor or health child care attendant school if they continue or are bothersome): back pain constipation drowsy, dizzy dry mouth headache stomach upset, gas trouble sleeping What may interact with this medicine? antacid cimetidine digoxin ketoconazole phenytoin quinidine ranitidine some antibiotics like ciprofloxacin, norfloxacin, and ofloxacin theophylline thyroid hormones warfarin What if I miss a dose? If you miss a dose, take it as soon as you can. If it is almost time for your next dose, take only that dose. Do not take double or extra doses. Where should I keep my medicine? Keep out of the reach of children. Store at room temperature between 15 and 30 degrees C (59 and 86 degrees F). Keep container tightly closed. Throw away any unused medicine after the expiration date. What should I tell my health care provider before I take this medicine? They need to know if you have any of these conditions: kidney disease an unusual or allergic reaction to sucralfate, other medicines, foods, dyes, or preservatives or trying to get breast-feeding What should I watch for while using this medicine? Visit your doctor or health child care attendant school for regular check ups. Let your doctor know if your symptoms do not improve or if you feel worse. Antacids should not be taken within one half hour before or after this medicine. You have been given the following additional information: Facial Contusion, With Wakeup Contusion, Lower Extremity Bursitis Crutch Walking Knee Immobilizer Andre Wrap Ibuprofen Oral tablet Sucralfate Oral tablet (Electronically signed by Hector Carl DO 11/02/2016 22:23)
--- NOTE | 2016-11-02 22:23 | ED MED RECONCILIATION SUMMARY ---
Patient: ANILA RAMÍREZ Medication Reconciliation Report [facility] VisitID: [id number] [address] [place] [address] 66y, F Registration Date/Time: 11/02/2016 Weight: 81.6 kg Height/Length: 63 in. BMI: 31.9 ALLERGIES: Anti nausea meds, Sulfa products The patient's Home Medications are listed below: CONTINUE TAKING THE FOLLOWING MEDICATIONS: Cobaxone Gabapentin Oral (600 mg) 1 tablet, 3x a day, takes 2 tabs at HS KCL 10 meq, daily Lasix Oral 20 mg, daily Lipitor Oral 20 mg, daily Multivitamins Oral 1 pill, daily NIFEdipine Oral 30 mg, daily PriLOSEC Oral 40 mg, daily TiZANidine HCl Oral (2 mg) 2 tablets, 2x a day TraZODone HCl Oral 100 mg, at bedtime Venlafaxine HCl ER Oral (75 mg) 2 capsules, bid The source(s) of the original Home Medication information: Not obtained. The following Medications were given to the patient in the Emergency Department: Toradol [IM] IM 60 mg, administered: 11/02/2016 3:00:00 PM The following Medications were prescribed to the patient: Ibuprofen 600 mg tablets: take 1 tablet orally every 8 hours as needed for pain, stiffness or swelling. Dispense twenty (20). No refill. -- Hector Carl DO Carafate 1 gm tablets: take 1 orally four times daily (1 hour before meals and at bedtime). Dispense sixty (60). No refills. Substitution is permissible. -- Hector Carl DO
== END 2016-11-02 16:06 | disposition home or self-care (01) ==
LOC: ED SRH 13:49
DX: S00.83XA Contusion of other part of head, initial encounter (principal); S80.02XA Contusion of left knee, initial encounter; S80.01XA Contusion of right knee, initial encounter; M70.41 Prepatellar bursitis, right knee; W01.198A Fall on same level from slipping, tripping and stumbling with subsequent striking against other object, initial encounter; Y93.89 Activity, other specified; Y92.532 Urgent care center as the place of occurrence of the external cause; Y99.9 Unspecified external cause status; G35 Multiple sclerosis; Z79.899 Other long term (current) drug therapy; Z88.2 Allergy status to sulfonamides